=== PATIENT | female | born 1935 | race African-American/Black ===

== ENCOUNTER → 2017-12-24 | Outpatient (CLI) | payer MEDICARE, MEDICAID | END | disposition home or self-care (01) | LOC: MRI 08:41 | PROVIDERS: ATTEND Internal Medicine Critical Care Medicine | DX: M75.101 Unspecified rotator cuff tear or rupture of right shoulder, not specified as traumatic (principal); M19.011 Primary osteoarthritis, right shoulder | CPT/HCPCS: 73221 ==

== ENCOUNTER 2018-11-29 05:53 | Inpatient (IN) | payer MEDICARE, MEDICAID ==
[~2018-11-29] VITALS: Ht 167.6 cm; Wt 108.9 kg
[~2018-11-29 05:53] MED LIST: DILT240T12 PO; METF-414 PO
[2018-11-29] MEDS ORDERED: TRANEXAMIC ACID 1,000 MG/10 ML IV SCH (06:45)
[2018-11-29] MEDS ORDERED: TRANEXAMIC ACID 1,000 MG in SODIUM CHLORIDE 0.9% 100 ML IV SCH (06:45)
[2018-11-29] MEDS ORDERED: MORPHINE SULFATE/PF 1MG/ML 10ML AMP ONE (06:47)
[2018-11-29] MEDS ORDERED: EPINEPHRINE 1:1000 1 MG/ML AMP ONE (06:47)
[2018-11-29] MEDS ORDERED: ROPIVACAINE HCL 10MG/ML 20 ML VIAL EPI ONE (06:48)
[2018-11-29] MEDS ORDERED: KETOROLAC 30MG/ML VIAL ONE (06:48)
[2018-11-29] MEDS ORDERED: NORMAL SALINE 0.9% 10 ML SYR ONE ×2 (06:49→07:10)
[2018-11-29] MEDS ORDERED: SODIUM CHLORIDE 0.9% 1,000 ML IV SCH (06:55)
[2018-11-29] MEDS ORDERED: TRYPAN BLUE 0.5 ML DISP.SYRIN IO ONE (07:10)
[2018-11-29] MEDS ORDERED: BACITRACIN 50,000 UNITS/VIAL ONE (07:11)
[2018-11-29] MEDS ORDERED: VANCOMYCIN HCL 500 MG/VIAL ONE (07:12)
[2018-11-29] MEDS ORDERED: BACITRACIN 15GM TUBE TOP ONE (07:12)
[2018-11-29] MEDS ORDERED: ROCURONIUM BROMIDE 10MG/ML VIAL 5ML IV ONE ×2 (07:35→09:19)
[2018-11-29] MEDS ORDERED: FENTANYL CITRATE/PF 50MCG/ML 2ML VIAL ONE (07:35)
[2018-11-29] MEDS ORDERED: NEOSTIGMINE METHYLSULFATE 1MG/ML 10 ML VIAL ONE ×2 (07:35→08:43)
[2018-11-29] MEDS ORDERED: ONDANSETRON HCL 4MG/2ML INJ ONE (07:36)
[2018-11-29] MEDS ORDERED: SODIUM CHLORIDE 0.9% 10ML VIAL ONE (07:36)
[2018-11-29] MEDS ORDERED: MIDAZOLAM HCL 2 MG/2 ML VIAL ONE (07:36)
[2018-11-29] MEDS ORDERED: EPHEDRINE SULFATE 50MG/ML VIAL ONE (07:36)
[2018-11-29] MEDS ORDERED: PROPOFOL 200MG/20ML VIAL IV ONE (07:36)
[2018-11-29] MEDS ORDERED: CEFAZOLIN SODIUM 1000MG/VIAL ONE (07:36)
[2018-11-29] MEDS ORDERED: METOCLOPRAMIDE HCL 10MG/2ML VIAL ONE (07:36)
[2018-11-29] MEDS ORDERED: LIDOCAINE HCL/PF 1% 10 MG/ML 5ML VIAL ONE (07:36)
[2018-11-29] MEDS ORDERED: PHENYLEPHRINE HCL 10 MG/ML 1ML (IV VIAL) IV ONE (07:36)
[2018-11-29] MEDS ORDERED: SUCCINYLCHOLINE CHLORIDE 200MG/10ML IV ONE (07:36)
[2018-11-29] MEDS ORDERED: GLYCOPYRROLATE 0.2 MG/ML 2ML VIAL ONE (07:36)
[2018-11-29] MEDS ORDERED: DEXAMETHASONE 4MG/ML 1ML VIAL ONE (07:36)
[2018-11-29] MEDS ORDERED: HYDR-4009 PO (07:37)
[2018-11-29] MEDS ORDERED: BUPIVACAINE HCL/EPINEPHRINE 0.5%/0.0005 30ML ONE (08:20)
[2018-11-29] MEDS ORDERED: BUPIVACAINE/EPINEPH/PF 0.25%/0.0005 10ML ONE (08:21)
[2018-11-29] MEDS ORDERED: SODIUM CHLORIDE 0.9% 1,000 ML IV ONE (09:54)
[2018-11-29] MEDS ORDERED: HYDROMORPHONE HCL/PF 2MG/ML CPJ IV PRN (10:00)
[2018-11-29] MEDS ORDERED: MORPHINE SULFATE 4 MG/ML CPJ (NOT FOR IM USE) IV PRN (10:00)
[2018-11-29] MEDS ORDERED: ONDANSETRON HCL 4MG/2ML INJ IV PRN ×2 (10:00→10:30)
[2018-11-29] MEDS ORDERED: MEPERIDINE HCL/PF 25MG/ML CPJ IV PRN (10:00)
[2018-11-29] MEDS ORDERED: ALBUMIN HUMAN 12.5G/250ML (5%) IV ONE (10:10)
[2018-11-29] MEDS ORDERED: SKIN ADHESIVE 0.7 GM EA TOP ONE (10:10)
[2018-11-29] MEDS ORDERED: CEFAZOLIN 1000MG PREMIX 50 ML IV SCH (10:30)
[2018-11-29] MEDS ORDERED: KETOROLAC 30MG/ML VIAL IV PRN (10:30)
[2018-11-29] MEDS ORDERED: ACETAMINOPHEN 325MG TABLET PO PRN (10:30)
[2018-11-29] MEDS ORDERED: NA PHOS,M-B/NA PHOS,DI-BA ENEMA 118ML PR PRN (13:15)
[2018-11-29] MEDS ORDERED: CLONIDINE 0.1MG TABLET PO PRN (13:15)
[2018-11-29] MEDS ORDERED: LORAZEPAM 0.5MG TABLET PO PRN (13:15)
[2018-11-29] MEDS ORDERED: IPRATROPIUM/ALBUTEROL 0.5-3(2.5)MG/3ML NEB INH PRN (13:15)
[2018-11-29] MEDS ORDERED: ACETAMINOPHEN 650MG/20.3ML UDC GT PRN (13:15)
[2018-11-29 13:30] VITALS: BP 99/55
[2018-11-29 14:00] VITALS: BP 109/88
[2018-11-29] MEDS ORDERED: HYDRALAZINE 20MG/ML VIAL IV PRN (15:00)
[2018-11-29] MEDS ORDERED: LABETALOL 5MG/ML SYR 20 MG/4 ML SYRINGE IV PRN (15:00)
[2018-11-29] MEDS ORDERED: DEXTROSE 50% WATER 50ML SYRINGE IV PRN (16:30)
[2018-11-29] MEDS: DILTIAZEM HCL 180MG CAPSULE CD 24HR PO SCH (17:00)
[2018-11-29] MEDS: SENNOSIDES/DOCUSATE SOD 8.6/50MG TABLET PO SCH (17:35)
[2018-11-29] MEDS: BLOOD SUGAR DIAGNOSTIC STRIP TEST SCH ×2 (17:35→21:00)
[2018-11-29] MEDS: INSULIN LISPRO 100 UNITS/ML SUBCUT SCH ×2 (17:50→21:00)
[2018-11-29 20:00] VITALS: BP 121/51
[2018-11-29] MEDS: HYDROCODONE/ACETAMINOPHEN 5/325MG TABLET PO PRN (20:54)
[2018-11-30] VITALS: BP 100/60
[2018-11-30] MEDS: HYDROCODONE/ACETAMINOPHEN 5/325MG TABLET PO PRN (02:17)
[2018-11-30 04:00] VITALS: BP 110/54
[2018-11-30] MEDS: SODIUM CHLORIDE 0.9% INJ 3ML FLUSH IVF SCH ×3 (04:11→14:00)
[2018-11-30] MEDS: BLOOD SUGAR DIAGNOSTIC STRIP TEST SCH ×4 (07:29→21:00)
[2018-11-30 07:48] LABS: BASOPHILS % 0.6 % (0.0-2.0); EOSINOPHILS % 0.3 % (0.0-5.0); HEMATOCRIT. 24.8 % (36.0-48.0); HEMOGLOBIN. 8.1 g/dL (12.0-16.0); LYMPHOCYTES % 21.1 % (20.0-50.0); MEAN CORPUSCULAR HEMOGLOBIN 27.9 pg (28.0-32.0); MEAN CORPUSCULAR VOLUME 85.7 fL (81.0-99.0); MEAN PLATELET VOLUME 9.8 fl (7.4-10.4); MONOCYTES % 7.3 % (2.0-8.0); NEUTROPHILS % 70.7 % (40.0-76.0); PLATELET 188 x1000/uL (130-400); RED BLOOD CELL COUNT 2.89 mill/uL (4.2-5.4); RED CELL DISTRIBUTION WIDTH 14.4 % (11.6-14.6)
[2018-11-30] MEDS: INSULIN LISPRO 100 UNITS/ML SUBCUT SCH ×4 (07:50→21:00)
[2018-11-30 08:00] VITALS: BP 113/63
[2018-11-30 08:08] LABS: CHLORIDE 106 mEq/L (98-107)
[2018-11-30] MEDS ORDERED: METFORMIN HCL 500MG TABLET PO SCH (09:00)
[2018-11-30] MEDS ORDERED: SODIUM POLYSTYRENE SULFONATE 15 G/60 ML BOT PO NR (09:30)
[2018-11-30] MEDS: CEFAZOLIN 1000MG PREMIX 50 ML IV SCH ×2 (09:36→17:11)
[2018-11-30] MEDS: SENNOSIDES/DOCUSATE SOD 8.6/50MG TABLET PO SCH ×2 (09:37→16:35)
[2018-11-30] MEDS: DILTIAZEM HCL 180MG CAPSULE CD 24HR PO SCH (09:37)
[2018-11-30 12:00] VITALS: BP 126/61
[2018-11-30] MEDS ORDERED: SODIUM CHLORIDE 0.9% 1,000 ML IV SCH (15:00)
[2018-11-30 16:00] VITALS: BP 127/52
[2018-11-30 20:00] VITALS: BP 106/58
[2018-12-01] VITALS: BP 129/62
[2018-12-01] MEDS: CEFAZOLIN 1000MG PREMIX 50 ML IV SCH (03:03)
[2018-12-01 04:00] VITALS: BP 135/66
[2018-12-01 07:01] LABS: BASOPHILS % 0.4 % (0.0-2.0); EOSINOPHILS % 0.1 % (0.0-5.0); HEMATOCRIT. 22.9 % (36.0-48.0); HEMOGLOBIN. 7.6 g/dL (12.0-16.0); MEAN CORPUSCULAR HEMOGLOBIN 28.5 pg (28.0-32.0); MEAN CORPUSCULAR VOLUME 85.6 fL (81.0-99.0); MEAN PLATELET VOLUME 9.4 fl (7.4-10.4); MONOCYTES % 9.5 % (2.0-8.0); PLATELET 148 x1000/uL (130-400); RED BLOOD CELL COUNT 2.68 mill/uL (4.2-5.4); RED CELL DISTRIBUTION WIDTH 14.4 % (11.6-14.6)
[2018-12-01] MEDS: INSULIN LISPRO 100 UNITS/ML SUBCUT SCH ×2 (07:50→12:31)
[2018-12-01] MEDS: BLOOD SUGAR DIAGNOSTIC STRIP TEST SCH ×2 (08:17→12:30)
[2018-12-01 13:03] VITALS: BP 146/88
== END 2018-12-01 13:54 | disposition home health service (06) | DRG 483 ==
LOC: OR 05:53 → 6EST 05:54
PROVIDERS: ADMIT Internal Medicine Critical Care Medicine
PROC: 0RRJ00Z Replacement of Right Shoulder Joint with Reverse Ball and Socket Synthetic Substitute, Open Approach (ICD-10-PCS; principal; 2018-11-29)
PROC: 5A09357 Assistance with Respiratory Ventilation, Less than 24 Consecutive Hours, Continuous Positive Airway Pressure (ICD-10-PCS; 2018-11-30)
PROC: 5A09357 Assistance with Respiratory Ventilation, Less than 24 Consecutive Hours, Continuous Positive Airway Pressure (ICD-10-PCS; 2018-12-01)
DX: M19.011 Primary osteoarthritis, right shoulder (principal); J96.20 Acute and chronic respiratory failure, unspecified whether with hypoxia or hypercapnia; E66.2 Morbid (severe) obesity with alveolar hypoventilation; N17.9 Acute kidney failure, unspecified; Z96.611 Presence of right artificial shoulder joint; M75.100 Unspecified rotator cuff tear or rupture of unspecified shoulder, not specified as traumatic; I10 Essential (primary) hypertension; J45.909 Unspecified asthma, uncomplicated; E87.5 Hyperkalemia; E11.9 Type 2 diabetes mellitus without complications; Z88.2 Allergy status to sulfonamides; Z68.38 Body mass index [BMI] 38.0-38.9, adult; G47.33 Obstructive sleep apnea (adult) (pediatric)
CPT/HCPCS: 36415; 73030; 80048; 82962; 83036; 83880; 86850; 86900; 88305; 88311; 93306; 93970; 94660; 97116; 97162; 97166; 97530; A4565; C1776; C1893; J0171; J0330; J0690; J1100; J1815; J1885; J2250; J2274; J2370; J2405; J2704; J2710; J2765; J2795; J3010; J3370; J3490; J7030; J7050; P9041; Q9957

== ENCOUNTER → 2021-07-11 | Outpatient (CLI) | payer MEDICARE, MEDICAID ==
[~2021-07-11] MED LIST changes: +HYDR-4009 PO; +OMEP20TA2 PO; +OXYB5TAB17 PO
== END | disposition home or self-care (01) ==
LOC: MRI 09:30
PROVIDERS: ATTEND Neurological Surgery
DX: M47.817 Spondylosis without myelopathy or radiculopathy, lumbosacral region (principal); M48.07 Spinal stenosis, lumbosacral region; M51.27 Other intervertebral disc displacement, lumbosacral region; M25.78 Osteophyte, vertebrae; M51.25 Other intervertebral disc displacement, thoracolumbar region; M50.31 Other cervical disc degeneration, high cervical region; M48.02 Spinal stenosis, cervical region; M51.34 Other intervertebral disc degeneration, thoracic region; M89.38 Hypertrophy of bone, other site; Z98.1 Arthrodesis status
CPT/HCPCS: 72141; 72148

== ENCOUNTER → 2021-11-08 | Outpatient (CLI) | payer MEDICARE, MEDICAID | END | disposition home or self-care (01) | LOC: MRI 13:55 | PROVIDERS: ATTEND Neurological Surgery | DX: M48.02 Spinal stenosis, cervical region (principal); M47.812 Spondylosis without myelopathy or radiculopathy, cervical region; G95.89 Other specified diseases of spinal cord; M48.8X2 Other specified spondylopathies, cervical region; M43.13 Spondylolisthesis, cervicothoracic region; M50.23 Other cervical disc displacement, cervicothoracic region; M25.78 Osteophyte, vertebrae | CPT/HCPCS: 72141 ==

== ENCOUNTER → 2021-12-26 | Outpatient (CLI) | payer MEDICARE, MEDICAID | END | disposition home or self-care (01) | LOC: CT 09:33 | PROVIDERS: ATTEND Internal Medicine Critical Care Medicine | DX: K44.9 Diaphragmatic hernia without obstruction or gangrene (principal); R91.1 Solitary pulmonary nodule; I25.10 Atherosclerotic heart disease of native coronary artery without angina pectoris; I70.8 Atherosclerosis of other arteries; M47.814 Spondylosis without myelopathy or radiculopathy, thoracic region | CPT/HCPCS: 74176 ==

== ENCOUNTER 2022-01-14 22:12 | Inpatient (IN) | payer MEDICARE, MEDICAID ==
[~2022-01-14] VITALS: Ht 167.6 cm; Wt 83.0 kg
[2022-01-14 22:00] VITALS: BP 130/82
[2022-01-14] MEDS ORDERED: MAGNESIUM/ALUMINUM HYDROXIDE/SIMETHICONE 30ML UDC PO PRN (22:30)
[2022-01-14] MEDS ORDERED: GUAIFENESIN 200MG/10ML SUGAR FREE UDC PO PRN (22:30)
[2022-01-14] MEDS ORDERED: ONDANSETRON HCL 4MG/2ML INJ IV PRN (22:30)
[2022-01-14] MEDS ORDERED: DOCUSATE SODIUM 100MG CAPSULE PO PRN (22:30)
[2022-01-14] MEDS ORDERED: ACETAMINOPHEN 650MG/20.3ML UDC GT PRN ×2 (22:30)
[2022-01-14] MEDS ORDERED: DEXTROSE 50% WATER 50ML SYRINGE IV PRN (22:30)
[2022-01-14] MEDS ORDERED: ACETAMINOPHEN 325MG TABLET PO PRN ×2 (22:30)
[2022-01-14] MEDS ORDERED: IPRATROPIUM/ALBUTEROL 0.5-3(2.5)MG/3ML NEB HHN PRN (22:30)
[2022-01-14] MEDS ORDERED: ACETAMINOPHEN 650MG SUPP PR PRN ×2 (22:30)
[2022-01-14 23:30] LABS: BASOPHILS % 0.5 % (0.0-2.0); EOSINOPHILS % 0.8 % (0.0-5.0); HEMATOCRIT. 27.7 % (36.0-48.0); LYMPHOCYTES % 30.5 % (20.0-50.0); MEAN CORPUSCULAR HEMOGLOBIN 26.1 pg (28.0-32.0); MEAN CORPUSCULAR VOLUME 80.2 fL (81.0-99.0); MEAN PLATELET VOLUME 7.6 fl (7.4-10.4); MONOCYTES % 5.8 % (2.0-8.0); NEUTROPHILS % 62.4 % (40.0-76.0); PLATELET 362 x1000/uL (130-400); RED BLOOD CELL COUNT 3.46 mill/uL (4.2-5.4)
[2022-01-14 23:31] LABS: CHLORIDE 107 mEq/L (98-107)
[2022-01-14 23:38] LABS: PARTIAL THROMBOPLASTIN TIME 31.2 sec (23.4-31.0); PROTHROMBIN TIME 10.9 sec (9.6-11.0)
[2022-01-15] VITALS: BP 124/75
[2022-01-15 06:41] LABS: BASOPHILS % 0.5 % (0.0-2.0); EOSINOPHILS % 1.4 % (0.0-5.0); HEMATOCRIT. 26.5 % (36.0-48.0); HEMOGLOBIN. 8.6 g/dL (12.0-16.0); LYMPHOCYTES % 33.1 % (20.0-50.0); MEAN CORPUSCULAR VOLUME 79.7 fL (81.0-99.0); MONOCYTES % 6.4 % (2.0-8.0); NEUTROPHILS % 58.6 % (40.0-76.0); PLATELET 350 x1000/uL (130-400); RED BLOOD CELL COUNT 3.33 mill/uL (4.2-5.4)
[2022-01-15 07:06] LABS: CHLORIDE 108 mEq/L (98-107)
[2022-01-15 07:19] LABS: CREATINE KINASE 19 IU/L (26-192); HDL CHOLESTEROL 64 mg/dL (40-59); LDL CHOLESTEROL 78 mg/dL (5-100)
[2022-01-15] MEDS: BLOOD SUGAR DIAGNOSTIC STRIP TEST SCH ×4 (07:30→21:51)
[2022-01-15 07:37] LABS: T4 FREE 1.19 ng/dL (0.76-1.46)
[2022-01-15] MEDS: INSULIN LISPRO 100 UNITS/ML SUBCUT SCH ×5 (07:50→21:50)
[2022-01-15 08:00] VITALS: BP 121/57
[2022-01-15 10:16] LABS: FOLIC ACID (FOLATE) SERUM 5.3 ng/mL (>5.38)
[2022-01-15 11:07] LABS: TOTAL IRON BINDING CAPACITY 170 ug/dL (250-450)
[2022-01-15 12:00] VITALS: BP 132/65
[2022-01-15] MEDS: DEXAMETHASONE 4MG/ML 1ML VIAL IV SCH ×2 (14:02→18:16)
[2022-01-15 16:00] VITALS: BP 145/82
[2022-01-15] MEDS: FOLIC ACID 1MG TABLET PO SCH (18:16)
[2022-01-15] MEDS: CYANOCOBALAMIN 1000MCG/ML VIAL IM SCH (18:16)
[2022-01-15 20:00] VITALS: BP 140/75
[2022-01-16] VITALS: BP 134/80
[2022-01-16] MEDS: DEXAMETHASONE 4MG/ML 1ML VIAL IV SCH ×3 (02:01→12:24)
[2022-01-16 04:00] VITALS: BP 149/80
[2022-01-16] MEDS: BLOOD SUGAR DIAGNOSTIC STRIP TEST SCH ×4 (06:26→21:35)
[2022-01-16 08:00] VITALS: BP 112/52
[2022-01-16 08:42] LABS: BASOPHILS % 0.9 % (0.0-2.0); EOSINOPHILS % 0.1 % (0.0-5.0); HEMATOCRIT. 27.5 % (36.0-48.0); HEMOGLOBIN. 8.9 g/dL (12.0-16.0); LYMPHOCYTES % 23.1 % (20.0-50.0); MEAN CORPUSCULAR HEMOGLOBIN 25.7 pg (28.0-32.0); MEAN CORPUSCULAR VOLUME 79.3 fL (81.0-99.0); MEAN PLATELET VOLUME 8.4 fl (7.4-10.4); MONOCYTES % 1.2 % (2.0-8.0); NEUTROPHILS % 74.7 % (40.0-76.0); PLATELET 371 x1000/uL (130-400); RED BLOOD CELL COUNT 3.47 mill/uL (4.2-5.4); RED CELL DISTRIBUTION WIDTH 18.9 % (11.6-14.6)
[2022-01-16 08:53] LABS: CHLORIDE 106 mEq/L (98-107)
[2022-01-16] MEDS: CYANOCOBALAMIN 1000MCG/ML VIAL IM SCH (10:20)
[2022-01-16] MEDS: FOLIC ACID 1MG TABLET PO SCH (10:20)
[2022-01-16] MEDS: INSULIN LISPRO 100 UNITS/ML SUBCUT SCH ×3 (10:24→17:21)
[2022-01-16 12:00] VITALS: BP 145/70
[2022-01-16 16:00] VITALS: BP 122/67
[2022-01-16 20:00] VITALS: BP 141/74
[2022-01-17] VITALS (7 sets, daily range): BP systolic 103–148; BP diastolic 55–72
[2022-01-17] MEDS: BLOOD SUGAR DIAGNOSTIC STRIP TEST SCH ×4 (06:46→20:58)
[2022-01-17] MEDS ORDERED: GENTAMICIN SULF 40MG/ML 2ML VIAL ONE (07:49)
[2022-01-17] MEDS ORDERED: THROMBIN (BOVINE) 5000 UNITS/VIAL TOP ONE (07:50)
[2022-01-17] MEDS ORDERED: BACITRACIN 15GM TUBE TOP ONE (07:50)
[2022-01-17] MEDS ORDERED: LIDOCAINE HCL/EPINEPHRINE 1%-EPI 1:100,000 20 ML VIAL ONE (07:50)
[2022-01-17] MEDS: INSULIN LISPRO 100 UNITS/ML SUBCUT SCH ×4 (07:50→21:18)
[2022-01-17 08:11] LABS: BASOPHILS % 0.7 % (0.0-2.0); HEMATOCRIT. 27.5 % (36.0-48.0); HEMOGLOBIN. 8.9 g/dL (12.0-16.0); LYMPHOCYTES % 16.9 % (20.0-50.0); MEAN CORPUSCULAR HEMOGLOBIN 25.4 pg (28.0-32.0); MEAN CORPUSCULAR VOLUME 78.9 fL (81.0-99.0); MEAN PLATELET VOLUME 8.2 fl (7.4-10.4); MONOCYTES % 4.1 % (2.0-8.0); NEUTROPHILS % 78.3 % (40.0-76.0); PLATELET 410 x1000/uL (130-400); RED BLOOD CELL COUNT 3.49 mill/uL (4.2-5.4); RED CELL DISTRIBUTION WIDTH 18.6 % (11.6-14.6)
[2022-01-17 08:39] LABS: CHLORIDE 105 mEq/L (98-107)
[2022-01-17] MEDS: CYANOCOBALAMIN 1000MCG/ML VIAL IM SCH (10:00)
[2022-01-17] MEDS: FOLIC ACID 1MG TABLET PO SCH (10:00)
[2022-01-17] MEDS: DEXAMETHASONE 4MG/ML 1ML VIAL IV SCH (17:36)
[2022-01-18] VITALS (29 sets, daily range): BP systolic 80–140; BP diastolic 40–75
[2022-01-18] MEDS: DEXAMETHASONE 4MG/ML 1ML VIAL IV SCH ×4 (01:09→17:31)
[2022-01-18] MEDS: BLOOD SUGAR DIAGNOSTIC STRIP TEST SCH ×4 (07:00→21:31)
[2022-01-18] MEDS: INSULIN LISPRO 100 UNITS/ML SUBCUT SCH ×4 (07:25→21:59)
[2022-01-18] MEDS ORDERED: LIDOCAINE HCL/EPINEPHRINE 1%-EPI 1:100,000 20 ML VIAL ONE (08:38)
[2022-01-18] MEDS ORDERED: GENTAMICIN SULF 40MG/ML 2ML VIAL ONE (08:38)
[2022-01-18] MEDS ORDERED: THROMBIN (BOVINE) 5000 UNITS/VIAL TOP ONE (08:38)
[2022-01-18] MEDS: FOLIC ACID 1MG TABLET PO SCH (08:48)
[2022-01-18] MEDS: CYANOCOBALAMIN 1000MCG/ML VIAL IM SCH (08:48)
[2022-01-18] MEDS ORDERED: CLINDAMYCIN 900 MG PREMIX 50 ML IV ONE (09:08)
[2022-01-18 09:09] LABS: IMMUNOGLOBULIN A 452 mg/dL (64-422); IMMUNOGLOBULIN G 1877 mg/dL (586-1602); IMMUNOGLOBULIN M 279 mg/dL (26-217)
[2022-01-18 09:13] LABS: BASOPHILS % 0.2 % (0.0-2.0); HEMATOCRIT. 28.7 % (36.0-48.0); HEMOGLOBIN. 9.3 g/dL (12.0-16.0); LYMPHOCYTES % 12.1 % (20.0-50.0); MEAN CORPUSCULAR HEMOGLOBIN 25.4 pg (28.0-32.0); MEAN CORPUSCULAR VOLUME 78.4 fL (81.0-99.0); MEAN PLATELET VOLUME 7.8 fl (7.4-10.4); MONOCYTES % 1.8 % (2.0-8.0); NEUTROPHILS % 85.9 % (40.0-76.0); PLATELET 393 x1000/uL (130-400); RED BLOOD CELL COUNT 3.67 mill/uL (4.2-5.4); RED CELL DISTRIBUTION WIDTH 18.6 % (11.6-14.6)
[2022-01-18] MEDS ORDERED: ETOMIDATE 2MG/ML 10ML VIAL IV ONE (09:14)
[2022-01-18] MEDS ORDERED: ROCURONIUM BROMIDE 10MG/ML VIAL 5ML IV ONE ×2 (09:20→10:02)
[2022-01-18] MEDS ORDERED: PROPOFOL 200MG/20ML VIAL IV ONE ×2 (09:30→10:08)
[2022-01-18] MEDS ORDERED: FENTANYL CITRATE/PF 50MCG/ML 2ML VIAL ONE (09:54)
[2022-01-18] MEDS ORDERED: NEOSTIGMINE METHYLSULFATE 1MG/ML 10 ML VIAL ONE (11:18)
[2022-01-18] MEDS ORDERED: GLYCOPYRROLATE 0.2 MG/ML 2ML VIAL ONE ×2 (11:18→11:51)
[2022-01-18] MEDS ORDERED: NICARDIPINE 100 MG in SODIUM CHLORIDE 0.9% 60 ML IV PRN (11:30)
[2022-01-18] MEDS ORDERED: EPHEDRINE SULFATE 50MG/ML VIAL ONE (11:40)
[2022-01-18] MEDS ORDERED: HYDRALAZINE 20MG/ML VIAL ONE (11:40)
[2022-01-18] MEDS ORDERED: SODIUM CHLORIDE 0.9% 10ML VIAL ONE ×2 (11:40→11:47)
[2022-01-18] MEDS ORDERED: LABETALOL HCL 5MG/ML VIAL 20ML IV ONE (11:40)
[2022-01-18] MEDS: DEXT 5%/LACTATED RINGERS 1,000 ML IV SCH ×2 (14:31→21:31)
[2022-01-18] MEDS: CLINDAMYCIN 300 MG in DEXTROSE 5% WATER 50 ML IV SCH ×2 (15:13→21:31)
[2022-01-18] MEDS: MORPHINE SULFATE 2 MG/ML CPJ (NOT FOR IM USE) IV PRN ×2 (19:00→22:06)
[2022-01-19] VITALS (58 sets, daily range): BP systolic 65–169; BP diastolic 39–133
[2022-01-19] MEDS: DEXAMETHASONE 4MG/ML 1ML VIAL IV SCH ×3 (00:23→11:37)
[2022-01-19 04:46] LABS: HEMATOCRIT. 27.3 % (36.0-48.0); HEMOGLOBIN. 8.8 g/dL (12.0-16.0); MEAN CORPUSCULAR HEMOGLOBIN 25.8 pg (28.0-32.0); MEAN CORPUSCULAR VOLUME 80.2 fL (81.0-99.0); MEAN PLATELET VOLUME 7.6 fl (7.4-10.4); PLATELET 423 x1000/uL (130-400); RED CELL DISTRIBUTION WIDTH 18.5 % (11.6-14.6)
[2022-01-19 04:55] LABS: CHLORIDE 110 mEq/L (98-107)
[2022-01-19] MEDS: MORPHINE SULFATE 2 MG/ML CPJ (NOT FOR IM USE) IV PRN ×2 (05:00→17:57)
[2022-01-19] MEDS: CLINDAMYCIN 300 MG in DEXTROSE 5% WATER 50 ML IV SCH ×3 (05:06→22:01)
[2022-01-19] MEDS: BLOOD SUGAR DIAGNOSTIC STRIP TEST SCH ×4 (05:06→22:01)
[2022-01-19] MEDS: INSULIN LISPRO 100 UNITS/ML SUBCUT SCH ×4 (05:20→22:02)
[2022-01-19 05:34] LABS: PLATELET ESTIMATE INCREASED
[2022-01-19] MEDS: DEXT 5%/LACTATED RINGERS 1,000 ML IV SCH (07:30)
[2022-01-19] MEDS: FOLIC ACID 1MG TABLET PO SCH (08:29)
[2022-01-19] MEDS: CYANOCOBALAMIN 1000MCG/ML VIAL IM SCH (08:29)
[2022-01-19] MEDS: AMLODIPINE 5MG TABLET PO SCH (11:37)
[2022-01-19] MEDS: LACTATED RINGERS 1,000 ML IV SCH (13:19)
[2022-01-19] MEDS: CLONIDINE 0.1MG TABLET PO PRN (13:19)
[2022-01-20] VITALS (62 sets, daily range): BP systolic 92–149; BP diastolic 31–107
[2022-01-20 04:52] LABS: BASOPHILS % 0.3 % (0.0-2.0); HEMATOCRIT. 26.6 % (36.0-48.0); HEMOGLOBIN. 8.7 g/dL (12.0-16.0); LYMPHOCYTES % 9.2 % (20.0-50.0); MEAN CORPUSCULAR HEMOGLOBIN 25.8 pg (28.0-32.0); MEAN CORPUSCULAR VOLUME 79.1 fL (81.0-99.0); MEAN PLATELET VOLUME 7.5 fl (7.4-10.4); MONOCYTES % 6.1 % (2.0-8.0); NEUTROPHILS % 84.4 % (40.0-76.0); PLATELET 368 x1000/uL (130-400); RED BLOOD CELL COUNT 3.36 mill/uL (4.2-5.4); RED CELL DISTRIBUTION WIDTH 18.7 % (11.6-14.6)
[2022-01-20 06:39] LABS: CHLORIDE 103 mEq/L (98-107)
[2022-01-20] MEDS: CLINDAMYCIN 300 MG in DEXTROSE 5% WATER 50 ML IV SCH ×3 (06:43→21:43)
[2022-01-20] MEDS: BLOOD SUGAR DIAGNOSTIC STRIP TEST SCH ×4 (07:08→21:43)
[2022-01-20] MEDS: LACTATED RINGERS 1,000 ML IV SCH ×2 (07:30→15:34)
[2022-01-20] MEDS: INSULIN LISPRO 100 UNITS/ML SUBCUT SCH ×4 (07:46→21:00)
[2022-01-20] MEDS: AMLODIPINE 5MG TABLET PO SCH (08:45)
[2022-01-20] MEDS: FOLIC ACID 1MG TABLET PO SCH (08:45)
[2022-01-20] MEDS ORDERED: BISACODYL 5MG TABLET PO PRN (11:45)
[2022-01-20] MEDS ORDERED: KETOROLAC 30MG/ML VIAL IV NR (12:30)
[2022-01-20] MEDS ORDERED: NALOXONE HCL 0.4MG/ML VIAL IV PRN (12:30)
[2022-01-20] MEDS: CLONIDINE 0.1MG TABLET PO PRN (13:54)
[2022-01-20] MEDS: MORPHINE SULFATE 2 MG/ML CPJ (NOT FOR IM USE) IV PRN (21:44)
[2022-01-21] VITALS (25 sets, daily range): BP systolic 86–168; BP diastolic 39–114
[2022-01-21] MEDS: LACTATED RINGERS 1,000 ML IV SCH ×2 (05:00→11:31)
[2022-01-21] MEDS: MORPHINE SULFATE 2 MG/ML CPJ (NOT FOR IM USE) IV PRN ×2 (06:25→11:33)
[2022-01-21 06:40] LABS: BASOPHILS % 0.6 % (0.0-2.0); EOSINOPHILS % 0.1 % (0.0-5.0); HEMATOCRIT. 24.9 % (36.0-48.0); HEMOGLOBIN. 8.1 g/dL (12.0-16.0); LYMPHOCYTES % 19.4 % (20.0-50.0); MEAN CORPUSCULAR HEMOGLOBIN 25.6 pg (28.0-32.0); MEAN CORPUSCULAR VOLUME 78.6 fL (81.0-99.0); MEAN PLATELET VOLUME 7.9 fl (7.4-10.4); MONOCYTES % 5.5 % (2.0-8.0); NEUTROPHILS % 74.4 % (40.0-76.0); PLATELET 303 x1000/uL (130-400); RED BLOOD CELL COUNT 3.16 mill/uL (4.2-5.4); RED CELL DISTRIBUTION WIDTH 18.8 % (11.6-14.6)
[2022-01-21 06:42] LABS: CHLORIDE 107 mEq/L (98-107)
[2022-01-21] MEDS: BLOOD SUGAR DIAGNOSTIC STRIP TEST SCH ×4 (06:56→22:00)
[2022-01-21] MEDS: CLINDAMYCIN 300 MG in DEXTROSE 5% WATER 50 ML IV SCH ×3 (07:00→22:10)
[2022-01-21] MEDS: INSULIN LISPRO 100 UNITS/ML SUBCUT SCH ×4 (07:00→22:00)
[2022-01-21] MEDS: AMLODIPINE 5MG TABLET PO SCH (09:32)
[2022-01-21] MEDS: FOLIC ACID 1MG TABLET PO SCH (09:32)
[2022-01-21] MEDS ORDERED: KETOROLAC 30MG/ML VIAL IV NR (17:30)
[2022-01-21] MEDS: TRAMADOL 50MG TABLET PO PRN (18:24)
[2022-01-22] VITALS (25 sets, daily range): BP systolic 96–147; BP diastolic 35–92
[2022-01-22] MEDS: KETOROLAC 15MG/ML VIAL IV PRN ×3 (01:16→15:28)
[2022-01-22 05:54] LABS: BASOPHILS % 0.8 % (0.0-2.0); EOSINOPHILS % 0.4 % (0.0-5.0); HEMATOCRIT. 24.8 % (36.0-48.0); HEMOGLOBIN. 8.1 g/dL (12.0-16.0); LYMPHOCYTES % 18.2 % (20.0-50.0); MEAN CORPUSCULAR HEMOGLOBIN 25.5 pg (28.0-32.0); MEAN CORPUSCULAR VOLUME 78.6 fL (81.0-99.0); MEAN PLATELET VOLUME 7.6 fl (7.4-10.4); MONOCYTES % 5.6 % (2.0-8.0); PLATELET 312 x1000/uL (130-400); RED BLOOD CELL COUNT 3.16 mill/uL (4.2-5.4); RED CELL DISTRIBUTION WIDTH 18.8 % (11.6-14.6)
[2022-01-22 05:56] LABS: CHLORIDE 103 mEq/L (98-107)
[2022-01-22] MEDS: BLOOD SUGAR DIAGNOSTIC STRIP TEST SCH ×4 (06:36→20:30)
[2022-01-22] MEDS: CLINDAMYCIN 300 MG in DEXTROSE 5% WATER 50 ML IV SCH ×3 (06:38→21:29)
[2022-01-22] MEDS: INSULIN LISPRO 100 UNITS/ML SUBCUT SCH ×4 (06:39→20:30)
[2022-01-22] MEDS: FOLIC ACID 1MG TABLET PO SCH (08:57)
[2022-01-22] MEDS: AMLODIPINE 5MG TABLET PO SCH (10:22)
[2022-01-22] MEDS: LACTATED RINGERS 1,000 ML IV SCH (10:59)
[2022-01-22] MEDS: MORPHINE SULFATE 2 MG/ML CPJ (NOT FOR IM USE) IV PRN ×2 (15:28→20:41)
[2022-01-22] MEDS: TRAMADOL 50MG TABLET PO PRN (17:52)
[2022-01-23] VITALS (25 sets, daily range): BP systolic 92–160; BP diastolic 49–98
[2022-01-23] MEDS: MORPHINE SULFATE 2 MG/ML CPJ (NOT FOR IM USE) IV PRN ×3 (00:54→18:12)
[2022-01-23] MEDS: LACTATED RINGERS 1,000 ML IV SCH ×3 (00:54→22:37)
[2022-01-23] MEDS: KETOROLAC 15MG/ML VIAL IV PRN ×2 (03:28→10:29)
[2022-01-23 04:49] LABS: BASOPHILS % 0.8 % (0.0-2.0); EOSINOPHILS % 0.7 % (0.0-5.0); HEMOGLOBIN. 8.1 g/dL (12.0-16.0); LYMPHOCYTES % 17.6 % (20.0-50.0); MEAN CORPUSCULAR HEMOGLOBIN 25.4 pg (28.0-32.0); MEAN CORPUSCULAR VOLUME 78.1 fL (81.0-99.0); MEAN PLATELET VOLUME 7.8 fl (7.4-10.4); MONOCYTES % 5.5 % (2.0-8.0); NEUTROPHILS % 75.4 % (40.0-76.0); PLATELET 327 x1000/uL (130-400); RED CELL DISTRIBUTION WIDTH 18.8 % (11.6-14.6)
[2022-01-23 04:55] LABS: CHLORIDE 102 mEq/L (98-107)
[2022-01-23] MEDS: BLOOD SUGAR DIAGNOSTIC STRIP TEST SCH ×4 (05:59→20:46)
[2022-01-23] MEDS: CLINDAMYCIN 300 MG in DEXTROSE 5% WATER 50 ML IV SCH ×2 (06:13→13:26)
[2022-01-23] MEDS: INSULIN LISPRO 100 UNITS/ML SUBCUT SCH ×4 (06:13→20:46)
[2022-01-23] MEDS: FOLIC ACID 1MG TABLET PO SCH (08:42)
[2022-01-23] MEDS: AMLODIPINE 5MG TABLET PO SCH ×2 (09:00→10:26)
[2022-01-23] MEDS ORDERED: SENNOSIDES 8.6MG TABLET PO PRN (11:00)
[2022-01-23] MEDS ORDERED: POLYETHYLENE GLYCOL 3350 (17GM) 1 DOSE PACK PO PRN (11:00)
[2022-01-23] MEDS ORDERED: BISACODYL 10MG SUPP PR PRN (11:00)
[2022-01-23] MEDS: DOCUSATE SODIUM 100MG CAPSULE PO SCH ×2 (11:41→18:00)
[2022-01-24] VITALS: BP 137/56
[2022-01-24 04:00] VITALS: BP 149/63
[2022-01-24] MEDS: BLOOD SUGAR DIAGNOSTIC STRIP TEST SCH ×4 (06:53→21:00)
[2022-01-24] MEDS: INSULIN LISPRO 100 UNITS/ML SUBCUT SCH ×4 (06:54→21:00)
[2022-01-24 07:47] LABS: HEMOGLOBIN. 7.9 g/dL (12.0-16.0); MEAN CORPUSCULAR HEMOGLOBIN 25.7 pg (28.0-32.0); MEAN CORPUSCULAR VOLUME 77.9 fL (81.0-99.0); MEAN PLATELET VOLUME 7.3 fl (7.4-10.4); PLATELET 342 x1000/uL (130-400); RED BLOOD CELL COUNT 3.09 mill/uL (4.2-5.4); RED CELL DISTRIBUTION WIDTH 18.6 % (11.6-14.6)
[2022-01-24 07:58] LABS: CHLORIDE 103 mEq/L (98-107)
[2022-01-24 08:00] VITALS: BP 150/72
[2022-01-24] MEDS: FOLIC ACID 1MG TABLET PO SCH (10:01)
[2022-01-24] MEDS: AMLODIPINE 5MG TABLET PO SCH (10:01)
[2022-01-24] MEDS: DOCUSATE SODIUM 100MG CAPSULE PO SCH ×2 (10:01→17:51)
[2022-01-24 12:00] VITALS: BP 146/81
[2022-01-24] MEDS: LACTATED RINGERS 1,000 ML IV SCH (13:27)
[2022-01-24 16:00] VITALS: BP 142/76
[2022-01-24 20:00] VITALS: BP 154/87
[2022-01-24 20:16] LABS: BASOPHILS % 0.2 % (0.0-2.0); EOSINOPHILS % 1.1 % (0.0-5.0); HEMATOCRIT. 27.1 % (36.0-48.0); HEMOGLOBIN. 8.9 g/dL (12.0-16.0); LYMPHOCYTES % 18.3 % (20.0-50.0); MEAN CORPUSCULAR VOLUME 79.1 fL (81.0-99.0); MONOCYTES % 7.7 % (2.0-8.0); NEUTROPHILS % 72.7 % (40.0-76.0); PLATELET 364 x1000/uL (130-400); RED BLOOD CELL COUNT 3.43 mill/uL (4.2-5.4); RED CELL DISTRIBUTION WIDTH 18.5 % (11.6-14.6)
[2022-01-24 20:33] LABS: CHLORIDE 101 mEq/L (98-107)
[2022-01-24] MEDS: MORPHINE SULFATE 2 MG/ML CPJ (NOT FOR IM USE) IV PRN (21:27)
[2022-01-24 22:04] LABS: PLATELET ESTIMATE NORMAL
[2022-01-25] VITALS: BP 140/85
[2022-01-25] MEDS: LACTATED RINGERS 1,000 ML IV SCH (02:20)
[2022-01-25 04:00] VITALS: BP 143/62
[2022-01-25 06:42] LABS: EOSINOPHILS % 1.4 % (0.0-5.0); HEMATOCRIT. 26.4 % (36.0-48.0); HEMOGLOBIN. 8.6 g/dL (12.0-16.0); LYMPHOCYTES % 20.9 % (20.0-50.0); MEAN CORPUSCULAR HEMOGLOBIN 25.7 pg (28.0-32.0); MEAN CORPUSCULAR VOLUME 79.1 fL (81.0-99.0); MEAN PLATELET VOLUME 7.9 fl (7.4-10.4); MONOCYTES % 9.3 % (2.0-8.0); NEUTROPHILS % 67.4 % (40.0-76.0); PLATELET 374 x1000/uL (130-400); RED BLOOD CELL COUNT 3.33 mill/uL (4.2-5.4); RED CELL DISTRIBUTION WIDTH 18.6 % (11.6-14.6)
[2022-01-25 06:45] LABS: CHLORIDE 102 mEq/L (98-107)
[2022-01-25] MEDS: BLOOD SUGAR DIAGNOSTIC STRIP TEST SCH ×2 (07:20→12:20)
[2022-01-25] MEDS: INSULIN LISPRO 100 UNITS/ML SUBCUT SCH ×2 (07:50→13:17)
[2022-01-25 08:00] VITALS: BP 151/67
[2022-01-25] MEDS: DOCUSATE SODIUM 100MG CAPSULE PO SCH ×2 (08:31→17:18)
[2022-01-25] MEDS: FOLIC ACID 1MG TABLET PO SCH (08:31)
[2022-01-25] MEDS: AMLODIPINE 5MG TABLET PO SCH (08:31)
[2022-01-25 12:00] VITALS: BP 135/62
[2022-01-25 16:00] VITALS: BP 145/57
== END 2022-01-25 17:24 | DRG 471 ==
LOC: 6WST 22:12 → MICUSO 01-18 12:38 → 6EST 01-23 16:00
PROVIDERS: ADMIT Family Medicine Adult Medicine; ATTEND Family Medicine Adult Medicine
PROC: 02HV33Z Insertion of Infusion Device into Superior Vena Cava, Percutaneous Approach (ICD-10-PCS; 2022-01-16)
PROC: B518ZZA Fluoroscopy of Superior Vena Cava, Guidance (ICD-10-PCS; 2022-01-16)
PROC: B548ZZA Ultrasonography of Superior Vena Cava, Guidance (ICD-10-PCS; 2022-01-16)
PROC: 0RG2071 Fusion of 2 or more Cervical Vertebral Joints with Autologous Tissue Substitute, Posterior Approach, Posterior Column, Open Approach (ICD-10-PCS; principal; 2022-01-18)
PROC: 0RG4071 Fusion of Cervicothoracic Vertebral Joint with Autologous Tissue Substitute, Posterior Approach, Posterior Column, Open Approach (ICD-10-PCS; 2022-01-18)
PROC: 01N10ZZ Release Cervical Nerve, Open Approach (ICD-10-PCS; 2022-01-18)
PROC: 01N80ZZ Release Thoracic Nerve, Open Approach (ICD-10-PCS; 2022-01-18)
DX: M48.02 Spinal stenosis, cervical region (principal); G82.50 Quadriplegia, unspecified; I62.1 Nontraumatic extradural hemorrhage; E43 Unspecified severe protein-calorie malnutrition; G99.2 Myelopathy in diseases classified elsewhere; N18.9 Chronic kidney disease, unspecified; D50.9 Iron deficiency anemia, unspecified; E53.8 Deficiency of other specified B group vitamins; I12.9 Hypertensive chronic kidney disease with stage 1 through stage 4 chronic kidney disease, or unspecified chronic kidney disease; M19.90 Unspecified osteoarthritis, unspecified site; M47.9 Spondylosis, unspecified; M54.12 Radiculopathy, cervical region; F03.90 Unspecified dementia, unspecified severity, without behavioral disturbance, psychotic disturbance, mood disturbance, and anxiety; J44.9 Chronic obstructive pulmonary disease, unspecified; M48.061 Spinal stenosis, lumbar region without neurogenic claudication; M81.0 Age-related osteoporosis without current pathological fracture; R97.0 Elevated carcinoembryonic antigen [CEA]; G62.9 Polyneuropathy, unspecified; R91.1 Solitary pulmonary nodule; M48.07 Spinal stenosis, lumbosacral region; Z20.822 Contact with and (suspected) exposure to COVID-19; E66.9 Obesity, unspecified; Z96.612 Presence of left artificial shoulder joint; Z96.611 Presence of right artificial shoulder joint; Z85.3 Personal history of malignant neoplasm of breast; Z82.49 Family history of ischemic heart disease and other diseases of the circulatory system; Z68.29 Body mass index [BMI] 29.0-29.9, adult
CPT/HCPCS: 36415; 36573; 70551; 71045; 72040; 72141; 74177; 76000; 80048; 80053; 80061; 82330; 82378; 82550; 82607; 82728; 82746; 82784; 82962; 83036; 83540; 83550; 83735; 84134; 84439; 84443; 84484; 84550; 85025; 85044; 86300; 86301; 86334; 86850; 86900; 86920; 87426; 88311; 94002; 97162; 97166; 97168; 97530; 97535; A6261; C1725; J0360; J1100; J1580; J1815; J1885; J2270; J2704; J2710; J3010; J3420; J3490; J7050; J7060; J7120; J7121; L0172

== ENCOUNTER 2022-01-25 17:35 | Inpatient (IN) | payer MEDICARE, MEDICAID ==
[~2022-01-25] VITALS: Ht 167.6 cm; Wt 83.7 kg
[2022-01-25 18:30] VITALS: BP 126/78
[2022-01-25 20:00] VITALS: BP 138/55
[2022-01-25] MEDS: INSULIN LISPRO 100 UNITS/ML SUBCUT SCH (21:00)
[2022-01-25] MEDS ORDERED: BISACODYL 5MG TABLET PO PRN (21:15)
[2022-01-25] MEDS ORDERED: CLONIDINE 0.1MG TABLET PO PRN (21:15)
[2022-01-25] MEDS ORDERED: IPRATROPIUM/ALBUTEROL 0.5-3(2.5)MG/3ML NEB HHN PRN (21:15)
[2022-01-25] MEDS ORDERED: MAGNESIUM/ALUMINUM HYDROXIDE/SIMETHICONE 30ML UDC PO PRN (21:15)
[2022-01-25] MEDS ORDERED: DEXTROSE 50% WATER 50ML SYRINGE IV PRN (21:15)
[2022-01-25] MEDS ORDERED: NALOXONE HCL 0.4 MG/ML 1ML VIAL IM PRN (21:15)
[2022-01-25] MEDS ORDERED: SENNOSIDES 8.6MG TABLET PO PRN (21:15)
[2022-01-25] MEDS ORDERED: POLYETHYLENE GLYCOL 3350 (17GM) 1 DOSE PACK PO PRN (21:15)
[2022-01-25] MEDS ORDERED: BISACODYL 10MG SUPP PR PRN (21:15)
[2022-01-25] MEDS ORDERED: GUAIFENESIN 200MG/10ML SUGAR FREE UDC PO PRN (21:15)
[2022-01-25] MEDS ORDERED: ACETAMINOPHEN 650MG/20.3ML UDC PO PRN ×2 (21:15)
[2022-01-25] MEDS ORDERED: ONDANSETRON HCL 4MG TABLET PO PRN (21:15)
[2022-01-25] MEDS ORDERED: ACETAMINOPHEN 325MG TABLET PO PRN (21:30)
[2022-01-25] MEDS: BLOOD SUGAR DIAGNOSTIC STRIP TEST SCH (21:30)
[2022-01-25] MEDS ORDERED: ACETAMINOPHEN 650MG SUPP PR PRN ×2 (21:30)
[2022-01-25] MEDS: HYDROCODONE/ACETAMINOPHEN 5/325MG TABLET PO PRN (22:43)
[2022-01-26] MEDS: BLOOD SUGAR DIAGNOSTIC STRIP TEST SCH ×4 (07:26→22:36)
[2022-01-26] MEDS: INSULIN LISPRO 100 UNITS/ML SUBCUT SCH ×4 (07:27→22:36)
[2022-01-26 07:39] LABS: CHLORIDE 102 mEq/L (98-107)
[2022-01-26 08:00] VITALS: BP 103/47
[2022-01-26] MEDS: DOCUSATE SODIUM 100MG CAPSULE PO SCH ×2 (08:37→17:00)
[2022-01-26] MEDS: AMLODIPINE 5MG TABLET PO SCH (08:37)
[2022-01-26] MEDS: FOLIC ACID 1MG TABLET PO SCH (08:37)
[2022-01-26 10:51] LABS: BASOPHILS % 0.9 % (0.0-2.0); HEMATOCRIT. 31.1 % (36.0-48.0); HEMOGLOBIN. 9.9 g/dL (12.0-16.0); LYMPHOCYTES % 14.3 % (20.0-50.0); MEAN CORPUSCULAR HEMOGLOBIN 25.1 pg (28.0-32.0); MEAN PLATELET VOLUME 7.4 fl (7.4-10.4); MONOCYTES % 8.6 % (2.0-8.0); NEUTROPHILS % 75.2 % (40.0-76.0); PLATELET 363 x1000/uL (130-400); RED BLOOD CELL COUNT 3.92 mill/uL (4.2-5.4); RED CELL DISTRIBUTION WIDTH 18.7 % (11.6-14.6)
[2022-01-26 10:54] LABS: MEAN CORPUSCULAR VOLUME 79.4 fL (81.0-99.0)
[2022-01-26 13:24] LABS: CLARITY URINE CLEAR (CLEAR); COLOR URINE YELLOW (YELLOW); KETONES URINE NEGATIVE (NEGATIVE); LEUKOCYTE ESTERASE URINE 3+ (NEGATIVE); NITRITE URINE POSITIVE (NEGATIVE); OCCULT BLOOD URINE 1+ (NEGATIVE); PH URINE 8.5 (4.5-8.0); PROTEIN URINE TRACE (NEGATIVE)
[2022-01-26 20:00] VITALS: BP 120/62
[2022-01-27] MEDS: BLOOD SUGAR DIAGNOSTIC STRIP TEST SCH ×4 (06:20→21:00)
[2022-01-27] MEDS: INSULIN LISPRO 100 UNITS/ML SUBCUT SCH ×5 (06:21→21:00)
[2022-01-27 08:00] VITALS: BP 93/33
[2022-01-27] MEDS: DOCUSATE SODIUM 100MG CAPSULE PO SCH ×2 (08:23→17:39)
[2022-01-27] MEDS: FOLIC ACID 1MG TABLET PO SCH (08:24)
[2022-01-27] MEDS: AMLODIPINE 5MG TABLET PO SCH (08:25)
[2022-01-27] MEDS: HYDROCODONE/ACETAMINOPHEN 5/325MG TABLET PO PRN ×2 (13:38→22:19)
[2022-01-27] MEDS: LIDOCAINE 5% PATCH TOP SCH (17:40)
[2022-01-27 20:00] VITALS: BP 104/44
[2022-01-28] MEDS: BLOOD SUGAR DIAGNOSTIC STRIP TEST SCH ×4 (06:30→21:00)
[2022-01-28 08:00] VITALS: BP 128/47
[2022-01-28] MEDS: FOLIC ACID 1MG TABLET PO SCH (08:45)
[2022-01-28] MEDS: DOCUSATE SODIUM 100MG CAPSULE PO SCH ×2 (08:45→17:00)
[2022-01-28] MEDS: AMLODIPINE 5MG TABLET PO SCH (08:46)
[2022-01-28] MEDS: LIDOCAINE 5% PATCH TOP SCH (08:47)
[2022-01-28] MEDS: HYDROCODONE/ACETAMINOPHEN 5/325MG TABLET PO PRN ×2 (08:47→13:23)
[2022-01-28] MEDS: INSULIN LISPRO 100 UNITS/ML SUBCUT SCH ×4 (08:48→21:00)
[2022-01-28 09:06] LABS: IMMUNOGLOBULIN A 345 mg/dL (64-422); IMMUNOGLOBULIN G 1073 mg/dL (586-1602); IMMUNOGLOBULIN M 221 mg/dL (26-217)
[2022-01-28] MEDS ORDERED: LEVOFLOXACIN 500MG TABLET PO SCH (11:00)
[2022-01-28 20:00] VITALS: BP 114/50
[2022-01-28] MEDS: ACETAMINOPHEN 325MG TABLET PO PRN (23:28)
[2022-01-29] MEDS: INSULIN LISPRO 100 UNITS/ML SUBCUT SCH ×4 (06:17→21:00)
[2022-01-29] MEDS: BLOOD SUGAR DIAGNOSTIC STRIP TEST SCH ×4 (06:17→21:00)
[2022-01-29 08:00] VITALS: BP 126/54
[2022-01-29] MEDS: FOLIC ACID 1MG TABLET PO SCH (09:06)
[2022-01-29] MEDS: HYDROCODONE/ACETAMINOPHEN 5/325MG TABLET PO PRN ×3 (09:07→16:48)
[2022-01-29] MEDS: AMLODIPINE 5MG TABLET PO SCH (09:08)
[2022-01-29] MEDS: DOCUSATE SODIUM 100MG CAPSULE PO SCH ×2 (09:08→16:50)
[2022-01-29] MEDS: LIDOCAINE 5% PATCH TOP SCH (09:09)
[2022-01-29] MEDS: CEFTRIAXONE 1,000 MG in DEXTROSE 5% WATER 50 ML IV SCH (13:43)
[2022-01-29] MEDS: LACTULOSE 20G/30ML UDC PO SCH ×3 (16:44→21:00)
[2022-01-29 20:00] VITALS: BP 120/54
[2022-01-30 06:32] LABS: BASOPHILS % 0.8 % (0.0-2.0); EOSINOPHILS % 1.4 % (0.0-5.0); HEMOGLOBIN. 7.7 g/dL (12.0-16.0); LYMPHOCYTES % 20.7 % (20.0-50.0); MEAN CORPUSCULAR HEMOGLOBIN 26.1 pg (28.0-32.0); MEAN CORPUSCULAR VOLUME 78.3 fL (81.0-99.0); MEAN PLATELET VOLUME 7.5 fl (7.4-10.4); MONOCYTES % 5.7 % (2.0-8.0); NEUTROPHILS % 71.4 % (40.0-76.0); PLATELET 353 x1000/uL (130-400); RED BLOOD CELL COUNT 2.94 mill/uL (4.2-5.4); RED CELL DISTRIBUTION WIDTH 18.6 % (11.6-14.6)
[2022-01-30 06:33] LABS: CHLORIDE 104 mEq/L (98-107)
[2022-01-30] MEDS: BLOOD SUGAR DIAGNOSTIC STRIP TEST SCH ×4 (06:54→20:15)
[2022-01-30] MEDS: HYDROCODONE/ACETAMINOPHEN 5/325MG TABLET PO PRN (06:55)
[2022-01-30] MEDS: INSULIN LISPRO 100 UNITS/ML SUBCUT SCH ×4 (06:59→20:15)
[2022-01-30 07:59] VITALS: BP 123/58
[2022-01-30 08:00] VITALS: BP 123/58
[2022-01-30] MEDS: AMLODIPINE 5MG TABLET PO SCH (10:18)
[2022-01-30] MEDS: DOCUSATE SODIUM 100MG CAPSULE PO SCH ×2 (10:18→17:56)
[2022-01-30] MEDS: LIDOCAINE 5% PATCH TOP SCH (10:18)
[2022-01-30] MEDS: FOLIC ACID 1MG TABLET PO SCH (10:18)
[2022-01-30] MEDS: CEFTRIAXONE 1,000 MG in DEXTROSE 5% WATER 50 ML IV SCH (13:04)
[2022-01-30] MEDS: METHOCARBAMOL 500MG TABLET PO PRN (13:04)
[2022-01-30] MEDS: GABAPENTIN 100MG CAPSULE PO SCH ×2 (13:04→21:12)
[2022-01-30] MEDS ORDERED: FERROUS SULFATE 325MG TABLET PO SCH (15:00)
[2022-01-30] MEDS: HYDROCODONE/ACETAMINOPHEN 10/325MG TABLET PO PRN (15:23)
[2022-01-30] MEDS: FERROUS SULFATE 325MG TABLET PO SCH (17:57)
[2022-01-30 18:00] VITALS: BP 108/53
[2022-01-30 20:00] VITALS: BP 117/50
[2022-01-30] MEDS: DIPHENHYDRAMINE 50MG CAPSULE PO SCH (20:15)
[2022-01-31] MEDS: BLOOD SUGAR DIAGNOSTIC STRIP TEST SCH ×4 (05:30→21:12)
[2022-01-31] MEDS: ACETAMINOPHEN 325MG TABLET PO PRN (05:30)
[2022-01-31] MEDS: GABAPENTIN 100MG CAPSULE PO SCH ×3 (05:30→21:15)
[2022-01-31] MEDS: INSULIN LISPRO 100 UNITS/ML SUBCUT SCH ×4 (05:30→21:00)
[2022-01-31 07:31] LABS: HEMATOCRIT. 22.8 % (36.0-48.0); HEMOGLOBIN. 7.6 g/dL (12.0-16.0); MEAN CORPUSCULAR HEMOGLOBIN 26.5 pg (28.0-32.0); MEAN CORPUSCULAR VOLUME 79.8 fL (81.0-99.0); PLATELET 385 x1000/uL (130-400); RED BLOOD CELL COUNT 2.86 mill/uL (4.2-5.4); RED CELL DISTRIBUTION WIDTH 18.5 % (11.6-14.6)
[2022-01-31 08:00] VITALS: BP 100/42
[2022-01-31] MEDS: DOCUSATE SODIUM 100MG CAPSULE PO SCH ×2 (09:00→17:02)
[2022-01-31] MEDS: AMLODIPINE 5MG TABLET PO SCH (09:00)
[2022-01-31] MEDS: ASCORBIC ACID 500 MG TABLET PO SCH (10:43)
[2022-01-31] MEDS: FOLIC ACID 1MG TABLET PO SCH (10:43)
[2022-01-31] MEDS: FERROUS SULFATE 325MG TABLET PO SCH ×3 (10:43→17:02)
[2022-01-31] MEDS: LIDOCAINE 5% PATCH TOP SCH (10:48)
[2022-01-31] MEDS: CEFTRIAXONE 1,000 MG in DEXTROSE 5% WATER 50 ML IV SCH (13:36)
[2022-01-31 19:15] LABS: PLATELET ESTIMATE NORMAL
[2022-01-31] MEDS: DIPHENHYDRAMINE 50MG CAPSULE PO SCH (21:11)
[2022-01-31] MEDS: HYDROCODONE/ACETAMINOPHEN 10/325MG TABLET PO PRN (21:13)
[2022-02-01] MEDS: INSULIN LISPRO 100 UNITS/ML SUBCUT SCH ×4 (06:13→22:00)
[2022-02-01] MEDS: BLOOD SUGAR DIAGNOSTIC STRIP TEST SCH ×4 (06:13→22:00)
[2022-02-01] MEDS: GABAPENTIN 100MG CAPSULE PO SCH ×3 (06:13→21:08)
[2022-02-01 08:00] VITALS: BP 104/56
[2022-02-01] MEDS: AMLODIPINE 5MG TABLET PO SCH (09:00)
[2022-02-01] MEDS: FOLIC ACID 1MG TABLET PO SCH (09:06)
[2022-02-01] MEDS: DOCUSATE SODIUM 100MG CAPSULE PO SCH ×2 (09:08→16:27)
[2022-02-01] MEDS: ASCORBIC ACID 500 MG TABLET PO SCH (09:09)
[2022-02-01] MEDS: FERROUS SULFATE 325MG TABLET PO SCH ×3 (09:09→16:27)
[2022-02-01] MEDS: LIDOCAINE 5% PATCH TOP SCH (09:11)
[2022-02-01] MEDS: CEFTRIAXONE 1,000 MG in DEXTROSE 5% WATER 50 ML IV SCH (12:25)
[2022-02-01 20:00] VITALS: BP 115/56
[2022-02-01] MEDS: ACETAMINOPHEN 325MG TABLET PO PRN (21:07)
[2022-02-01] MEDS: DIPHENHYDRAMINE 50MG CAPSULE PO SCH (21:07)
[2022-02-02] MEDS: GABAPENTIN 100MG CAPSULE PO SCH ×3 (06:03→21:14)
[2022-02-02] MEDS: BLOOD SUGAR DIAGNOSTIC STRIP TEST SCH ×4 (06:48→20:44)
[2022-02-02] MEDS: INSULIN LISPRO 100 UNITS/ML SUBCUT SCH ×4 (07:22→20:44)
[2022-02-02 07:54] LABS: BASOPHILS % 0.9 % (0.0-2.0); EOSINOPHILS % 2.6 % (0.0-5.0); HEMATOCRIT. 22.7 % (36.0-48.0); HEMOGLOBIN. 7.7 g/dL (12.0-16.0); LYMPHOCYTES % 26.5 % (20.0-50.0); MEAN CORPUSCULAR HEMOGLOBIN 26.3 pg (28.0-32.0); MEAN CORPUSCULAR VOLUME 78.2 fL (81.0-99.0); MEAN PLATELET VOLUME 7.9 fl (7.4-10.4); MONOCYTES % 5.9 % (2.0-8.0); NEUTROPHILS % 64.1 % (40.0-76.0); PLATELET 385 x1000/uL (130-400); RED BLOOD CELL COUNT 2.91 mill/uL (4.2-5.4); RED CELL DISTRIBUTION WIDTH 18.5 % (11.6-14.6)
[2022-02-02 08:00] VITALS: BP 101/52
[2022-02-02] MEDS: FOLIC ACID 1MG TABLET PO SCH (08:36)
[2022-02-02] MEDS: AMLODIPINE 5MG TABLET PO SCH (08:36)
[2022-02-02] MEDS: FERROUS SULFATE 325MG TABLET PO SCH ×3 (08:37→16:42)
[2022-02-02] MEDS: DOCUSATE SODIUM 100MG CAPSULE PO SCH ×2 (08:37→16:42)
[2022-02-02] MEDS: ASCORBIC ACID 500 MG TABLET PO SCH (08:37)
[2022-02-02] MEDS: LIDOCAINE 5% PATCH TOP SCH (08:42)
[2022-02-02] MEDS: CEFTRIAXONE 1,000 MG in DEXTROSE 5% WATER 50 ML IV SCH (12:13)
[2022-02-02 17:06] LABS: 25-HYDROXY VITAMIN D3 6.7 ng/mL (.)
[2022-02-02 20:00] VITALS: BP 133/54
[2022-02-02] MEDS: DIPHENHYDRAMINE 50MG CAPSULE PO SCH (21:13)
[2022-02-03] MEDS: INSULIN LISPRO 100 UNITS/ML SUBCUT SCH ×4 (06:24→21:00)
[2022-02-03] MEDS: BLOOD SUGAR DIAGNOSTIC STRIP TEST SCH ×4 (06:24→21:20)
[2022-02-03] MEDS: GABAPENTIN 100MG CAPSULE PO SCH ×3 (06:38→21:21)
[2022-02-03 08:00] VITALS: BP 109/53
[2022-02-03] MEDS: DOCUSATE SODIUM 100MG CAPSULE PO SCH ×2 (08:47→17:20)
[2022-02-03] MEDS: FERROUS SULFATE 325MG TABLET PO SCH ×3 (08:47→17:20)
[2022-02-03] MEDS: ASCORBIC ACID 500 MG TABLET PO SCH (08:47)
[2022-02-03] MEDS: FOLIC ACID 1MG TABLET PO SCH (08:47)
[2022-02-03] MEDS: HYDROCODONE/ACETAMINOPHEN 10/325MG TABLET PO PRN ×2 (08:49→13:47)
[2022-02-03] MEDS: AMLODIPINE 5MG TABLET PO SCH (08:50)
[2022-02-03] MEDS: LIDOCAINE 5% PATCH TOP SCH (08:50)
[2022-02-03] MEDS: CEFTRIAXONE 1,000 MG in DEXTROSE 5% WATER 50 ML IV SCH (13:47)
[2022-02-03] MEDS: ERGOCALCIFEROL 50000UNITS CAPSULE PO SCH (17:20)
[2022-02-03 20:00] VITALS: BP 113/49
[2022-02-03] MEDS ORDERED: DEXAMETHASONE 4MG TABLET PO NR (20:00)
[2022-02-03] MEDS: METHOCARBAMOL 500MG TABLET PO PRN (21:21)
[2022-02-03] MEDS: DIPHENHYDRAMINE 50MG CAPSULE PO SCH (21:30)
[2022-02-04] MEDS: METHOCARBAMOL 500MG TABLET PO PRN (07:05)
[2022-02-04] MEDS: GABAPENTIN 100MG CAPSULE PO SCH ×3 (07:05→22:10)
[2022-02-04] MEDS: BLOOD SUGAR DIAGNOSTIC STRIP TEST SCH ×4 (07:13→21:00)
[2022-02-04 08:00] VITALS: BP 118/51
[2022-02-04] MEDS ORDERED: DEXAMETHASONE 4MG TABLET PO NR (08:00)
[2022-02-04] MEDS: FERROUS SULFATE 325MG TABLET PO SCH ×3 (08:52→17:42)
[2022-02-04] MEDS: HYDROCODONE/ACETAMINOPHEN 5/325MG TABLET PO PRN ×2 (08:52→22:04)
[2022-02-04] MEDS: AMLODIPINE 5MG TABLET PO SCH (08:52)
[2022-02-04] MEDS: FOLIC ACID 1MG TABLET PO SCH (08:52)
[2022-02-04] MEDS: ASCORBIC ACID 500 MG TABLET PO SCH (08:52)
[2022-02-04] MEDS: DOCUSATE SODIUM 100MG CAPSULE PO SCH ×2 (08:53→17:42)
[2022-02-04] MEDS: INSULIN LISPRO 100 UNITS/ML SUBCUT SCH ×4 (08:53→22:09)
[2022-02-04] MEDS: LIDOCAINE 5% PATCH TOP SCH (08:53)
[2022-02-04 20:00] VITALS: BP 114/38
[2022-02-04] MEDS: DIPHENHYDRAMINE 50MG CAPSULE PO SCH (23:41)
[2022-02-05] MEDS: BLOOD SUGAR DIAGNOSTIC STRIP TEST SCH ×4 (06:25→21:16)
[2022-02-05] MEDS: GABAPENTIN 100MG CAPSULE PO SCH ×3 (06:27→21:16)
[2022-02-05 07:59] VITALS: BP 133/55
[2022-02-05] MEDS: FERROUS SULFATE 325MG TABLET PO SCH ×3 (08:53→18:29)
[2022-02-05] MEDS: DOCUSATE SODIUM 100MG CAPSULE PO SCH ×2 (08:53→18:29)
[2022-02-05] MEDS: FOLIC ACID 1MG TABLET PO SCH (08:53)
[2022-02-05] MEDS: ASCORBIC ACID 500 MG TABLET PO SCH (08:53)
[2022-02-05] MEDS: AMLODIPINE 5MG TABLET PO SCH (08:54)
[2022-02-05] MEDS: LIDOCAINE 5% PATCH TOP SCH (08:55)
[2022-02-05] MEDS: HYDROCODONE/ACETAMINOPHEN 5/325MG TABLET PO PRN (08:55)
[2022-02-05] MEDS: INSULIN LISPRO 100 UNITS/ML SUBCUT SCH ×4 (09:00→21:00)
[2022-02-05 20:00] VITALS: BP 103/51
[2022-02-05] MEDS: DIPHENHYDRAMINE 50MG CAPSULE PO SCH (21:17)
[2022-02-06] MEDS: GABAPENTIN 100MG CAPSULE PO SCH ×2 (05:44→14:57)
[2022-02-06] MEDS: INSULIN LISPRO 100 UNITS/ML SUBCUT SCH ×4 (05:45→21:38)
[2022-02-06] MEDS: BLOOD SUGAR DIAGNOSTIC STRIP TEST SCH ×4 (05:45→21:36)
[2022-02-06 07:34] LABS: BASOPHILS % 0.6 % (0.0-2.0); EOSINOPHILS % 2.8 % (0.0-5.0); HEMATOCRIT. 24.3 % (36.0-48.0); HEMOGLOBIN. 7.8 g/dL (12.0-16.0); LYMPHOCYTES % 38.6 % (20.0-50.0); MEAN CORPUSCULAR HEMOGLOBIN 25.7 pg (28.0-32.0); MEAN CORPUSCULAR VOLUME 79.7 fL (81.0-99.0); MEAN PLATELET VOLUME 7.9 fl (7.4-10.4); MONOCYTES % 4.1 % (2.0-8.0); NEUTROPHILS % 53.9 % (40.0-76.0); PLATELET 396 x1000/uL (130-400); RED BLOOD CELL COUNT 3.05 mill/uL (4.2-5.4); RED CELL DISTRIBUTION WIDTH 18.2 % (11.6-14.6)
[2022-02-06 07:37] LABS: CHLORIDE 108 mEq/L (98-107)
[2022-02-06 08:00] VITALS: BP 112/55
[2022-02-06] MEDS ORDERED: NALOXONE HCL 0.4MG/ML VIAL IV PRN (08:30)
[2022-02-06] MEDS: ASCORBIC ACID 500 MG TABLET PO SCH (08:43)
[2022-02-06] MEDS: DOCUSATE SODIUM 100MG CAPSULE PO SCH ×2 (08:43→17:52)
[2022-02-06] MEDS: FERROUS SULFATE 325MG TABLET PO SCH ×3 (08:44→17:51)
[2022-02-06] MEDS: FOLIC ACID 1MG TABLET PO SCH (08:44)
[2022-02-06] MEDS: HYDROCODONE/ACETAMINOPHEN 5/325MG TABLET PO PRN ×3 (08:44→21:36)
[2022-02-06] MEDS: LIDOCAINE 5% PATCH TOP SCH (08:45)
[2022-02-06] MEDS: AMLODIPINE 5MG TABLET PO SCH (08:49)
[2022-02-06] MEDS ORDERED: HYDROMORPHONE HCL/PF 2MG/ML CPJ IM PRN (10:45)
[2022-02-06] MEDS: NYSTATIN 100,000 UNITS/GM CREAM 15GM TOP SCH (17:51)
[2022-02-06] MEDS: METHOCARBAMOL 500MG TABLET PO PRN (17:52)
[2022-02-06] MEDS: DEXAMETHASONE 4MG TABLET PO SCH (17:52)
[2022-02-06 20:00] VITALS: BP 143/53
[2022-02-06] MEDS: DIPHENHYDRAMINE 50MG CAPSULE PO SCH (21:35)
[2022-02-06] MEDS: GABAPENTIN 300MG CAPSULE PO SCH (21:36)
[2022-02-07] MEDS: METHOCARBAMOL 500MG TABLET PO PRN ×2 (03:55→13:33)
[2022-02-07] MEDS: NYSTATIN 100,000 UNITS/GM CREAM 15GM TOP SCH ×2 (03:55→15:15)
[2022-02-07] MEDS: GABAPENTIN 300MG CAPSULE PO SCH ×3 (06:34→21:49)
[2022-02-07] MEDS: BLOOD SUGAR DIAGNOSTIC STRIP TEST SCH ×4 (06:40→21:49)
[2022-02-07] MEDS: INSULIN LISPRO 100 UNITS/ML SUBCUT SCH ×4 (06:54→21:58)
[2022-02-07] MEDS: FERROUS SULFATE 325MG TABLET PO SCH ×3 (08:50→17:41)
[2022-02-07] MEDS: FOLIC ACID 1MG TABLET PO SCH (08:50)
[2022-02-07] MEDS: DOCUSATE SODIUM 100MG CAPSULE PO SCH ×2 (08:51→17:41)
[2022-02-07] MEDS: HYDROCODONE/ACETAMINOPHEN 5/325MG TABLET PO PRN (08:51)
[2022-02-07] MEDS: ASCORBIC ACID 500 MG TABLET PO SCH (08:51)
[2022-02-07] MEDS: DEXAMETHASONE 4MG TABLET PO SCH (08:51)
[2022-02-07] MEDS: AMLODIPINE 5MG TABLET PO SCH (08:59)
[2022-02-07] MEDS: LIDOCAINE 5% PATCH TOP SCH (08:59)
[2022-02-07 20:00] VITALS: BP 124/59
[2022-02-07] MEDS: METHOCARBAMOL 500MG TABLET PO SCH (21:49)
[2022-02-07] MEDS: DIPHENHYDRAMINE 50MG CAPSULE PO SCH (21:49)
[2022-02-08] MEDS: GABAPENTIN 300MG CAPSULE PO SCH ×3 (05:27→22:15)
[2022-02-08] MEDS: METHOCARBAMOL 500MG TABLET PO SCH ×3 (05:27→22:15)
[2022-02-08] MEDS: NYSTATIN 100,000 UNITS/GM CREAM 15GM TOP SCH ×2 (05:27→16:14)
[2022-02-08] MEDS: BLOOD SUGAR DIAGNOSTIC STRIP TEST SCH ×4 (05:56→22:22)
[2022-02-08] MEDS: INSULIN LISPRO 100 UNITS/ML SUBCUT SCH ×4 (05:57→22:23)
[2022-02-08 08:00] VITALS: BP 120/65
[2022-02-08] MEDS: FERROUS SULFATE 325MG TABLET PO SCH ×3 (10:05→16:26)
[2022-02-08] MEDS: FOLIC ACID 1MG TABLET PO SCH (10:05)
[2022-02-08] MEDS: DEXAMETHASONE 4MG TABLET PO SCH (10:05)
[2022-02-08] MEDS: ASCORBIC ACID 500 MG TABLET PO SCH (10:06)
[2022-02-08] MEDS: AMLODIPINE 5MG TABLET PO SCH (10:06)
[2022-02-08] MEDS: LIDOCAINE 5% PATCH TOP SCH ×2 (10:07→15:01)
[2022-02-08] MEDS: DOCUSATE SODIUM 100MG CAPSULE PO SCH ×2 (10:09→16:14)
[2022-02-08] MEDS: HYDROCODONE/ACETAMINOPHEN 5/325MG TABLET PO PRN ×2 (10:46→18:08)
[2022-02-08] MEDS: METHYL SALICYLATE/MENTHOL CREAM 85GM TOP SCH ×2 (15:00→16:26)
[2022-02-08 18:00] VITALS: BP 128/65
[2022-02-08 20:00] VITALS: BP 118/67
[2022-02-08] MEDS: DIPHENHYDRAMINE 50MG CAPSULE PO SCH (22:15)
[2022-02-09] MEDS: HYDROCODONE/ACETAMINOPHEN 5/325MG TABLET PO PRN ×2 (00:37→12:58)
[2022-02-09] MEDS: METHYL SALICYLATE/MENTHOL CREAM 85GM TOP SCH ×5 (00:39→23:26)
[2022-02-09] MEDS: NYSTATIN 100,000 UNITS/GM CREAM 15GM TOP SCH ×2 (03:37→12:56)
[2022-02-09] MEDS: METHOCARBAMOL 500MG TABLET PO SCH ×3 (06:07→21:44)
[2022-02-09] MEDS: GABAPENTIN 300MG CAPSULE PO SCH ×3 (06:15→21:44)
[2022-02-09] MEDS: BLOOD SUGAR DIAGNOSTIC STRIP TEST SCH ×4 (06:59→21:44)
[2022-02-09] MEDS: INSULIN LISPRO 100 UNITS/ML SUBCUT SCH ×4 (07:00→21:00)
[2022-02-09 08:00] VITALS: BP 142/74
[2022-02-09] MEDS: FOLIC ACID 1MG TABLET PO SCH (09:00)
[2022-02-09] MEDS: DOCUSATE SODIUM 100MG CAPSULE PO SCH ×2 (09:24→17:40)
[2022-02-09] MEDS: LIDOCAINE 5% PATCH TOP SCH (09:24)
[2022-02-09] MEDS: DEXAMETHASONE 4MG TABLET PO SCH (09:30)
[2022-02-09] MEDS: FERROUS SULFATE 325MG TABLET PO SCH ×3 (09:30→17:00)
[2022-02-09] MEDS: ASCORBIC ACID 500 MG TABLET PO SCH (09:30)
[2022-02-09] MEDS: AMLODIPINE 5MG TABLET PO SCH (09:31)
[2022-02-09] MEDS: ACETAMINOPHEN 325MG TABLET PO PRN (09:33)
[2022-02-09 20:00] VITALS: BP 138/72
[2022-02-09] MEDS: DIPHENHYDRAMINE 50MG CAPSULE PO SCH (21:44)
[2022-02-10] MEDS: NYSTATIN 100,000 UNITS/GM CREAM 15GM TOP SCH ×2 (05:58→12:42)
[2022-02-10] MEDS: GABAPENTIN 300MG CAPSULE PO SCH ×3 (05:59→21:20)
[2022-02-10] MEDS: INSULIN LISPRO 100 UNITS/ML SUBCUT SCH ×4 (05:59→21:26)
[2022-02-10] MEDS: BLOOD SUGAR DIAGNOSTIC STRIP TEST SCH ×4 (05:59→21:27)
[2022-02-10] MEDS: METHOCARBAMOL 500MG TABLET PO SCH ×3 (05:59→21:21)
[2022-02-10] MEDS: METHYL SALICYLATE/MENTHOL CREAM 85GM TOP SCH ×3 (05:59→17:48)
[2022-02-10 06:14] LABS: BASOPHILS % 0.3 % (0.0-2.0); EOSINOPHILS % 0.5 % (0.0-5.0); HEMATOCRIT. 22.7 % (36.0-48.0); HEMOGLOBIN. 7.4 g/dL (12.0-16.0); LYMPHOCYTES % 34.1 % (20.0-50.0); MEAN CORPUSCULAR HEMOGLOBIN 26.3 pg (28.0-32.0); MEAN CORPUSCULAR VOLUME 80.1 fL (81.0-99.0); MEAN PLATELET VOLUME 7.7 fl (7.4-10.4); NEUTROPHILS % 59.1 % (40.0-76.0); PLATELET 380 x1000/uL (130-400); RED BLOOD CELL COUNT 2.83 mill/uL (4.2-5.4); RED CELL DISTRIBUTION WIDTH 18.1 % (11.6-14.6)
[2022-02-10] MEDS: DEXAMETHASONE 4MG TABLET PO SCH (07:59)
[2022-02-10] MEDS: DOCUSATE SODIUM 100MG CAPSULE PO SCH ×2 (07:59→17:44)
[2022-02-10] MEDS: FOLIC ACID 1MG TABLET PO SCH (07:59)
[2022-02-10] MEDS: ASCORBIC ACID 500 MG TABLET PO SCH (07:59)
[2022-02-10 08:00] VITALS: BP 135/51
[2022-02-10] MEDS: FERROUS SULFATE 325MG TABLET PO SCH ×3 (08:00→17:44)
[2022-02-10] MEDS: AMLODIPINE 5MG TABLET PO SCH (08:07)
[2022-02-10] MEDS: HYDROCODONE/ACETAMINOPHEN 5/325MG TABLET PO PRN ×2 (08:09→14:56)
[2022-02-10] MEDS: LIDOCAINE 5% PATCH TOP SCH (08:09)
[2022-02-10 09:07] LABS: CHLORIDE 108 mEq/L (98-107)
[2022-02-10] MEDS: ERGOCALCIFEROL 50000UNITS CAPSULE PO SCH (12:38)
[2022-02-10 20:00] VITALS: BP 103/47
[2022-02-10] MEDS: DIPHENHYDRAMINE 50MG CAPSULE PO SCH (21:20)
[2022-02-11] MEDS: NYSTATIN 100,000 UNITS/GM CREAM 15GM TOP SCH ×2 (01:49→17:29)
[2022-02-11] MEDS: METHYL SALICYLATE/MENTHOL CREAM 85GM TOP SCH ×4 (01:49→17:29)
[2022-02-11] MEDS: GABAPENTIN 300MG CAPSULE PO SCH ×3 (06:37→21:06)
[2022-02-11] MEDS: BLOOD SUGAR DIAGNOSTIC STRIP TEST SCH ×4 (06:38→21:05)
[2022-02-11] MEDS: METHOCARBAMOL 500MG TABLET PO SCH ×3 (06:38→21:06)
[2022-02-11] MEDS: INSULIN LISPRO 100 UNITS/ML SUBCUT SCH ×4 (06:45→21:12)
[2022-02-11 08:00] VITALS: BP_SYST 111; BP_SYST 146; BP_DIAS 52; BP_DIAS 89
[2022-02-11] MEDS: ASCORBIC ACID 500 MG TABLET PO SCH (09:25)
[2022-02-11] MEDS: FOLIC ACID 1MG TABLET PO SCH (09:25)
[2022-02-11] MEDS: FERROUS SULFATE 325MG TABLET PO SCH ×3 (09:25→17:29)
[2022-02-11] MEDS: DEXAMETHASONE 4MG TABLET PO SCH (09:25)
[2022-02-11] MEDS: DOCUSATE SODIUM 100MG CAPSULE PO SCH ×2 (09:25→17:29)
[2022-02-11] MEDS: LIDOCAINE 5% PATCH TOP SCH (09:26)
[2022-02-11] MEDS: AMLODIPINE 5MG TABLET PO SCH (09:26)
[2022-02-11] MEDS: HYDROCODONE/ACETAMINOPHEN 5/325MG TABLET PO PRN (09:27)
[2022-02-11 20:00] VITALS: BP 133/67
[2022-02-11] MEDS: DIPHENHYDRAMINE 50MG CAPSULE PO SCH (21:06)
[2022-02-12] MEDS: NYSTATIN 100,000 UNITS/GM CREAM 15GM TOP SCH ×2 (01:21→15:15)
[2022-02-12] MEDS: METHYL SALICYLATE/MENTHOL CREAM 85GM TOP SCH ×4 (01:21→18:00)
[2022-02-12] MEDS: BLOOD SUGAR DIAGNOSTIC STRIP TEST SCH ×4 (06:20→21:00)
[2022-02-12] MEDS: INSULIN LISPRO 100 UNITS/ML SUBCUT SCH ×4 (06:21→22:30)
[2022-02-12] MEDS: METHOCARBAMOL 500MG TABLET PO SCH ×3 (06:22→22:25)
[2022-02-12] MEDS: GABAPENTIN 300MG CAPSULE PO SCH ×3 (06:22→22:25)
[2022-02-12 06:51] LABS: BASOPHILS % 0.6 % (0.0-2.0); HEMATOCRIT. 26.3 % (36.0-48.0); HEMOGLOBIN. 8.5 g/dL (12.0-16.0); LYMPHOCYTES % 36.1 % (20.0-50.0); MEAN CORPUSCULAR HEMOGLOBIN 26.1 pg (28.0-32.0); MEAN PLATELET VOLUME 7.8 fl (7.4-10.4); MONOCYTES % 5.7 % (2.0-8.0); NEUTROPHILS % 56.6 % (40.0-76.0); PLATELET 400 x1000/uL (130-400); RED BLOOD CELL COUNT 3.24 mill/uL (4.2-5.4)
[2022-02-12 08:00] VITALS: BP 100/58
[2022-02-12] MEDS: DOCUSATE SODIUM 100MG CAPSULE PO SCH ×2 (08:36→17:22)
[2022-02-12] MEDS: ASCORBIC ACID 500 MG TABLET PO SCH (08:36)
[2022-02-12] MEDS: FOLIC ACID 1MG TABLET PO SCH (08:36)
[2022-02-12] MEDS: DEXAMETHASONE 4MG TABLET PO SCH (08:37)
[2022-02-12] MEDS: AMLODIPINE 5MG TABLET PO SCH (08:37)
[2022-02-12] MEDS: FERROUS SULFATE 325MG TABLET PO SCH ×3 (08:37→17:22)
[2022-02-12] MEDS: HYDROCODONE/ACETAMINOPHEN 5/325MG TABLET PO PRN (08:38)
[2022-02-12] MEDS: LIDOCAINE 5% PATCH TOP SCH (08:38)
[2022-02-12] MEDS ORDERED: NALOXONE HCL 0.4MG/ML VIAL IV PRN (09:30)
[2022-02-12 20:00] VITALS: BP 114/48
[2022-02-12] MEDS: DIPHENHYDRAMINE 50MG CAPSULE PO SCH (22:25)
[2022-02-13] MEDS: METHYL SALICYLATE/MENTHOL CREAM 85GM TOP SCH ×4 (00:38→17:51)
[2022-02-13] MEDS: BLOOD SUGAR DIAGNOSTIC STRIP TEST SCH ×4 (06:29→20:57)
[2022-02-13] MEDS: INSULIN LISPRO 100 UNITS/ML SUBCUT SCH ×4 (06:29→21:04)
[2022-02-13] MEDS: GABAPENTIN 300MG CAPSULE PO SCH ×3 (06:30→20:57)
[2022-02-13] MEDS: METHOCARBAMOL 500MG TABLET PO SCH ×3 (06:30→20:57)
[2022-02-13] MEDS: NYSTATIN 100,000 UNITS/GM CREAM 15GM TOP SCH ×2 (06:30→15:15)
[2022-02-13 07:47] VITALS: BP 109/46
[2022-02-13] MEDS: HYDROCODONE/ACETAMINOPHEN 5/325MG TABLET PO PRN (08:05)
[2022-02-13] MEDS: AMLODIPINE 5MG TABLET PO SCH (08:05)
[2022-02-13] MEDS: DEXAMETHASONE 4MG TABLET PO SCH (08:05)
[2022-02-13] MEDS: DOCUSATE SODIUM 100MG CAPSULE PO SCH ×2 (08:05→17:48)
[2022-02-13] MEDS: FOLIC ACID 1MG TABLET PO SCH (08:05)
[2022-02-13] MEDS: FERROUS SULFATE 325MG TABLET PO SCH ×3 (08:05→17:48)
[2022-02-13] MEDS: ASCORBIC ACID 500 MG TABLET PO SCH (08:05)
[2022-02-13] MEDS: LIDOCAINE 5% PATCH TOP SCH (08:07)
[2022-02-13 20:00] VITALS: BP 121/54
[2022-02-13] MEDS: DIPHENHYDRAMINE 50MG CAPSULE PO SCH (20:57)
[2022-02-14] MEDS: METHYL SALICYLATE/MENTHOL CREAM 85GM TOP SCH ×4 (00:03→18:00)
[2022-02-14] MEDS: GABAPENTIN 300MG CAPSULE PO SCH ×3 (05:35→20:53)
[2022-02-14] MEDS: NYSTATIN 100,000 UNITS/GM CREAM 15GM TOP SCH ×2 (05:35→15:15)
[2022-02-14] MEDS: METHOCARBAMOL 500MG TABLET PO SCH ×3 (05:36→20:53)
[2022-02-14] MEDS: BLOOD SUGAR DIAGNOSTIC STRIP TEST SCH ×4 (05:36→20:53)
[2022-02-14] MEDS: INSULIN LISPRO 100 UNITS/ML SUBCUT SCH ×5 (05:37→21:01)
[2022-02-14 06:00] VITALS: BP 117/59
[2022-02-14 07:13] LABS: BASOPHILS % 0.5 % (0.0-2.0); EOSINOPHILS % 1.2 % (0.0-5.0); HEMATOCRIT. 25.8 % (36.0-48.0); HEMOGLOBIN. 8.1 g/dL (12.0-16.0); LYMPHOCYTES % 37.2 % (20.0-50.0); MEAN CORPUSCULAR VOLUME 82.7 fL (81.0-99.0); MEAN PLATELET VOLUME 7.9 fl (7.4-10.4); MONOCYTES % 6.1 % (2.0-8.0); PLATELET 389 x1000/uL (130-400); RED BLOOD CELL COUNT 3.12 mill/uL (4.2-5.4); RED CELL DISTRIBUTION WIDTH 19.2 % (11.6-14.6)
[2022-02-14] MEDS: DEXAMETHASONE 4MG TABLET PO SCH (08:41)
[2022-02-14] MEDS: DOCUSATE SODIUM 100MG CAPSULE PO SCH ×2 (08:41→18:12)
[2022-02-14] MEDS: HYDROCODONE/ACETAMINOPHEN 5/325MG TABLET PO PRN (08:43)
[2022-02-14] MEDS: ASCORBIC ACID 500 MG TABLET PO SCH (08:43)
[2022-02-14] MEDS: AMLODIPINE 5MG TABLET PO SCH (08:43)
[2022-02-14] MEDS: FERROUS SULFATE 325MG TABLET PO SCH ×3 (08:43→18:12)
[2022-02-14] MEDS: FOLIC ACID 1MG TABLET PO SCH (08:43)
[2022-02-14] MEDS: LIDOCAINE 5% PATCH TOP SCH (08:44)
[2022-02-14 20:00] VITALS: BP 101/53
[2022-02-14] MEDS ORDERED: LIDO700A30 TOP (20:46)
[2022-02-14] MEDS ORDERED: AMLO5TAB88 PO (20:46)
[2022-02-14] MEDS ORDERED: METH-773 PO (20:46)
[2022-02-14] MEDS ORDERED: HYDR-4001 PO (20:46)
[2022-02-14] MEDS ORDERED: METF-416 MT (20:46)
[2022-02-14] MEDS ORDERED: GABA-532 PO (20:46)
[2022-02-14] MEDS ORDERED: SENN-257 PO (20:46)
[2022-02-14] MEDS ORDERED: BENGAY TOP (20:46)
[2022-02-14] MEDS: DIPHENHYDRAMINE 50MG CAPSULE PO SCH (20:53)
[2022-02-15] MEDS: METHYL SALICYLATE/MENTHOL CREAM 85GM TOP SCH ×3 (01:06→13:02)
[2022-02-15] MEDS: METHOCARBAMOL 500MG TABLET PO SCH ×2 (05:44→13:02)
[2022-02-15] MEDS: NYSTATIN 100,000 UNITS/GM CREAM 15GM TOP SCH (05:44)
[2022-02-15] MEDS: GABAPENTIN 300MG CAPSULE PO SCH ×2 (05:44→13:02)
[2022-02-15] MEDS: INSULIN LISPRO 100 UNITS/ML SUBCUT SCH ×2 (05:45→12:42)
[2022-02-15] MEDS: BLOOD SUGAR DIAGNOSTIC STRIP TEST SCH ×2 (05:45→11:15)
[2022-02-15] MEDS: AMLODIPINE 5MG TABLET PO SCH (09:00)
[2022-02-15] MEDS ORDERED: SODIUM POLYSTYRENE SULFONATE 15 G/60 ML BOT PO NR (09:00)
[2022-02-15] MEDS: DOCUSATE SODIUM 100MG CAPSULE PO SCH (09:00)
[2022-02-15] MEDS: FOLIC ACID 1MG TABLET PO SCH (10:01)
[2022-02-15] MEDS: ASCORBIC ACID 500 MG TABLET PO SCH (10:01)
[2022-02-15] MEDS: FERROUS SULFATE 325MG TABLET PO SCH ×2 (10:01→13:02)
[2022-02-15] MEDS: LIDOCAINE 5% PATCH TOP SCH (10:01)
[2022-02-15] MEDS: DEXAMETHASONE 4MG TABLET PO SCH (10:01)
[2022-02-15] MEDS: HYDROCODONE/ACETAMINOPHEN 5/325MG TABLET PO PRN (10:03)
[2022-02-15 12:04] VITALS: BP 108/54
[2022-02-17] MEDS ORDERED: ERGOCALCIFEROL 50000UNITS CAPSULE PO SCH (09:00)
== END 2022-02-15 15:00 | disposition home health service (06) | DRG 551 ==
LOC: 4WST 17:35
PROVIDERS: ADMIT Physical Medicine & Rehabilitation Spinal Cord Injury Medicine; ATTEND Family Medicine Adult Medicine
DX: M48.02 Spinal stenosis, cervical region (principal); G82.50 Quadriplegia, unspecified; E43 Unspecified severe protein-calorie malnutrition; N39.0 Urinary tract infection, site not specified; G95.20 Unspecified cord compression; G99.2 Myelopathy in diseases classified elsewhere; D64.9 Anemia, unspecified; I12.9 Hypertensive chronic kidney disease with stage 1 through stage 4 chronic kidney disease, or unspecified chronic kidney disease; J45.909 Unspecified asthma, uncomplicated; K59.00 Constipation, unspecified; N18.9 Chronic kidney disease, unspecified; M85.80 Other specified disorders of bone density and structure, unspecified site; M50.10 Cervical disc disorder with radiculopathy, unspecified cervical region; D50.9 Iron deficiency anemia, unspecified; E53.8 Deficiency of other specified B group vitamins; E55.9 Vitamin D deficiency, unspecified; E86.0 Dehydration; R53.81 Other malaise; R97.0 Elevated carcinoembryonic antigen [CEA]; R53.1 Weakness; E87.5 Hyperkalemia; M48.04 Spinal stenosis, thoracic region; Z96.611 Presence of right artificial shoulder joint; Z60.2 Problems related to living alone; R91.1 Solitary pulmonary nodule; Z96.612 Presence of left artificial shoulder joint; Z98.1 Arthrodesis status; Z85.3 Personal history of malignant neoplasm of breast; Z82.49 Family history of ischemic heart disease and other diseases of the circulatory system; Z79.899 Other long term (current) drug therapy; Z88.0 Allergy status to penicillin; Z68.29 Body mass index [BMI] 29.0-29.9, adult; S14.109A Unspecified injury at unspecified level of cervical spinal cord, initial encounter; M79.609 Pain in unspecified limb
CPT/HCPCS: 36415; 80048; 80053; 81003; 82270; 82306; 82784; 82962; 82977; 84134; 85025; 86334; 87077; 87186; 92610; 93970; 97110; 97112; 97116; 97150; 97163; 97166; 97530; 97535; A4565; A6261; C1893; J0696; J1815; J7060; J8540; Q0163

== ENCOUNTER 2022-04-05 19:15 | Emergency (ER) | payer MEDICARE, MEDICAID ==
[~2022-04-05] VITALS: Ht 162.6 cm; Wt 62.0 kg
[~2022-04-05 19:15] MED LIST changes: +AMLO5TAB88 PO; +BENGAY TOP; -DILT240T12 PO; +GABA-532 PO; +HYDR-4001 PO; -HYDR-4009 PO; +LIDO700A30 TOP; -METF-414 PO; +METF-416 MT; +METH-773 PO; -OMEP20TA2 PO; +OMEP20TA23 PO; -OXYB5TAB17 PO; +SENN-257 PO
[2022-04-05] MEDS ORDERED: POLY17PO3 MT (20:33)
[2022-04-05 21:20] VITALS: BP 152/72
== END 2022-04-05 21:30 | disposition home or self-care (01) ==
LOC: ER 19:15
DX: K59.00 Constipation, unspecified (principal); E11.9 Type 2 diabetes mellitus without complications; Z88.0 Allergy status to penicillin
CPT/HCPCS: 99283

== ENCOUNTER → 2022-05-30 | Day surgery (SDC) | payer MEDICARE, MEDICAID ==
[~2022-05-30] VITALS: Ht 162.6 cm; Wt 67.6 kg
[~2022-05-30] MED LIST changes: +AMLO2.5T45 PO; +EPHEDRINE SULFATE 50MG/ML VIAL ONE; +LIDOCAINE HCL/PF 2% 20MG/ML 5 ML/VIAL ONE; +METF-414 PO; +POLY17PO3 MT; +PROPOFOL 200MG/20ML VIAL IV ONE; +SODIUM CHLORIDE 0.9% 1,000 ML IV SCH
[2022-05-30 09:17] LABS: BASOPHILS % 0.6 % (0.0-2.0); EOSINOPHILS % 1.8 % (0.0-5.0); HEMATOCRIT. 28.5 % (36.0-48.0); HEMOGLOBIN. 9.2 g/dL (12.0-16.0); LYMPHOCYTES % 26.8 % (20.0-50.0); MEAN CORPUSCULAR HEMOGLOBIN 25.2 pg (28.0-32.0); MEAN CORPUSCULAR VOLUME 78.4 fL (81.0-99.0); MONOCYTES % 7.8 % (2.0-8.0); PLATELET 446 x1000/uL (130-400); RED BLOOD CELL COUNT 3.64 mill/uL (4.2-5.4); RED CELL DISTRIBUTION WIDTH 17.3 % (11.6-14.6)
== END | disposition home or self-care (01) ==
LOC: OR 08:16
PROVIDERS: ATTEND Internal Medicine Gastroenterology
DX: R63.4 Abnormal weight loss (principal); K64.8 Other hemorrhoids; K63.89 Other specified diseases of intestine; R97.0 Elevated carcinoembryonic antigen [CEA]; D50.8 Other iron deficiency anemias; Z85.3 Personal history of malignant neoplasm of breast; Z86.010 Personal history of colon polyps; Z79.899 Other long term (current) drug therapy; Z98.890 Other specified postprocedural states; Z20.822 Contact with and (suspected) exposure to COVID-19
CPT/HCPCS: 36415; 45378; 80048; 82962; 85025; 87426; 93005; C9803; J2704; J3490

== ENCOUNTER → 2022-11-27 | Day surgery (SDC) | payer MEDICARE, MEDICAID ==
[~2022-11-27] VITALS: Ht 165.1 cm; Wt 54.4 kg
[~2022-11-27] MED LIST changes: -AMLO5TAB88 PO; -BENGAY TOP; -EPHEDRINE SULFATE 50MG/ML VIAL ONE; -GABA-532 PO; -LIDO700A30 TOP; -LIDOCAINE HCL/PF 2% 20MG/ML 5 ML/VIAL ONE; -METF-416 MT; -METH-773 PO; -OMEP20TA23 PO; -PROPOFOL 200MG/20ML VIAL IV ONE
== END | disposition home or self-care (01) ==
LOC: MERGE 05:47 → OR 05:47
PROVIDERS: ATTEND Surgery
DX: R22.9 Localized swelling, mass and lump, unspecified (principal); Z53.8 Procedure and treatment not carried out for other reasons; Z79.899 Other long term (current) drug therapy; Z98.890 Other specified postprocedural states; Z20.822 Contact with and (suspected) exposure to COVID-19
CPT/HCPCS: 36415; 84132; 87426; C9803

== ENCOUNTER 2022-12-11 09:00 | Day surgery (SDC) | payer MEDICARE, MEDICAID ==
[~2022-12-11] VITALS: Ht 167.6 cm; Wt 65.3 kg
[~2022-12-11 09:00] MED LIST changes: -AMLO2.5T45 PO; +ASPI1POW35 PO; -METF-414 PO; -SODIUM CHLORIDE 0.9% 1,000 ML IV SCH
[2022-12-11 09:45] LABS: HEMATOCRIT 31.2 % (36.0-48.0)
[2022-12-11] MEDS ORDERED: LIDOCAINE HCL 1% 10 MG/ML 10ML VIAL ONE (10:08)
[2022-12-11] MEDS ORDERED: SODIUM CHLORIDE 0.9% 1,000 ML IV SCH (10:30)
[2022-12-11] MEDS ORDERED: BUPIVACAINE HCL/PF 0.5% (5MG/ML) 10ML ONE ×2 (10:35→11:48)
[2022-12-11] MEDS ORDERED: CLINDAMYCIN 600MG PREMIX 50 ML IV ONE (11:48)
[2022-12-11] MEDS ORDERED: SKIN ADHESIVE 0.7 GM EA TOP ONE (11:49)
[2022-12-11] MEDS ORDERED: FENTANYL CITRATE/PF 50MCG/ML 2ML VIAL ONE (11:51)
== END 2022-12-11 15:00 | disposition home or self-care (01) ==
LOC: OR 09:00
DX: R22.2 Localized swelling, mass and lump, trunk (principal); I10 Essential (primary) hypertension; K21.9 Gastro-esophageal reflux disease without esophagitis; Z85.3 Personal history of malignant neoplasm of breast; Z79.899 Other long term (current) drug therapy; Z98.890 Other specified postprocedural states; Z20.822 Contact with and (suspected) exposure to COVID-19
CPT/HCPCS: 21552; 21555; 36415; 80048; 85014; 85018; 87426; 88305; C9803; J3010; J3490; Z7610

== ENCOUNTER → 2023-01-12 | Outpatient (CLI) | payer MEDICARE, MEDICAID | END | disposition home or self-care (01) | LOC: RAD 11:13 | PROVIDERS: ATTEND Internal Medicine Critical Care Medicine | DX: R06.02 Shortness of breath (principal); M43.22 Fusion of spine, cervical region | CPT/HCPCS: 71046 ==

== ENCOUNTER → 2024-03-17 | Outpatient (CLI) | payer MEDICARE, MEDICAID | END | disposition home or self-care (01) | LOC: CT 12:41 | PROVIDERS: ATTEND Internal Medicine Critical Care Medicine | DX: M16.0 Bilateral primary osteoarthritis of hip (principal); M85.88 Other specified disorders of bone density and structure, other site; M25.551 Pain in right hip; M86.8X5 Other osteomyelitis, thigh | CPT/HCPCS: 72192; 73030; 73700 ==